=== PATIENT | female | born 1935 | race Caucasian/White ===

== ENCOUNTER 2017-10-08 13:20 | Inpatient (IN) | payer OTHER ==
[~2017-10-08] VITALS: Ht 154.9 cm; Wt 83.0 kg
[~2017-10-08 13:20] MED LIST: AMLODIPINE BESYL5 M1 PO; DIOVAN HCT 1601 EACH PO; GLUCOPHAGE1000 M1 PO; ZOCOR20 M1 PO
--- NOTE | 2017-10-08 13:24 | ED DYSPNEA/ASTHMA COMPLAINT ---
History of Present Illness General Chief Complaint: Dyspnea (COPD, CHF, Other) Stated Complaint: SOB Source: patient, old records Exam Limitations: no limitations Vital Signs & Intake/Output Vital Signs & Intake/Output Vital Signs Date Time Temp Pulse Resp B/P B/P Pulse O2 O2 Flow FiO2 Mean Ox Delivery Rate 10/08 1648 97.6 108 24 100/56 97 BIPAP 10/08 1615 120 98 10/08 1614 91 10/08 1613 88 Nasal 4.0L Cannula 10/08 1609 97.6 116 24 110/60 98 BIPAP 10/08 1553 132 32 124/74 90 Non 100% ReBreather 10/08 1437 97.1 100 20 118/70 95 Room Air 10/08 1345 92 Room Air 10/08 1345 92 10/08 1327 96.7 118 26 120/66 92 Room Air Allergies Coded Allergies: No Known Drug Allergies (Intermediate, NONE 10/08/17) conteh (LIP SWELLING FROM BEANS 07/02/16) Reconcile Medications Albuterol Sulfate (Proair Hfa) 90 MCG HFA.AER.AD 2 PUF INH Q4-6 PRN PRN SHORTNESS OF BREATH (Reported) Amlodipine Besylate 5 MG TABLET 1 TAB PO DAILY BP (Reported) Cyanocobalamin (Vitamin B-12) 1,000 MCG TABLET 1 TAB PO DAILY VITAMIN SUPPORT (Reported) Fluticasone/Salmeterol (Advair 250-50 Diskus) 250 MCG-50 MCG/DOSE BLST.W.DEV 1 PUF INH BID BREATHING PROBLEMS (Reported) Metformin HCl (Glucophage) 1,000 MG TABLET 1 TAB PO BID DIABETES (Reported) Simvastatin (Zocor*) 20 MG TABLET 1 TAB PO QPM CHOLESTEROL (Reported) Valsartan/Hydrochlorothiazide (Diovan Hct 160-12.5 MG Tab) 160 MG-12.5 MG TABLET 1 TAB PO DAILY BP (Reported) Triage Nurses Notes Reviewed? yes Onset: Gradual Duration: constant, getting worse Timing: recent history Severity: moderate Activities at Onset: none Prior Episodes/Possible Cause: no prior episodes Associated Symptoms: cough HPI: 82 Year old female with a past history known for asthma, diabetes, hypertension presents to the ER for evaluation sent in by her primary care physician complaining of shortness of breath wheezing for the past 3 weeks worse with lying flat and at nighttime. She also reports a nonproductive cough. No fever no chills no chest pain. She denies any abdominal pain nausea vomiting. She does not smoke. She has been using her inhaler without improvement. No leg swelling. no history of chf. she is not followed by a heart specialist or asphalt mixer (Devon Green) Past History Travel History Traveled to [place] past 21 day No Medical History Any Pertinent Medical History? see below for history Cardiovascular: hypertension Respiratory: asthma Endocrine: diabetes Surgical History Surgical History: non-contributory Psychosocial History Who do you live with Spouse What is your primary language Yakut Family History Hx Contributory? No (Devon Green) Review of Systems Review of Systems Constitutional: Reports: see HPI. Comments Review of systems: See HPI, All other systems negative. Constitutional, no chills no fever, HEENT: no sore throat no congestion Cardiovascular: No chest pain , Skin: no rashes, no change in skin Respiratory:see hpi GI: No nausea no vomiting, no diarrhea : No dysuria Muscle skeletal: No joint pain, no back pain, no neck pain, Neurologic: , no headache Heme/endocrine: No bruising Immunology: No lymphadenopathy ([place]on Green) Physical Exam Physical Exam General Appearance: well developed/nourished, no apparent distress, alert Respiratory: decreased breath sounds Comments: Well-developed well-nourished person in no acute distress HEENT: Normal EENT exam; PERRL, EOMI, HEAD is atraumatic. moist mucous membranes. Neck: Supple, normal range of motion Back: Full range of motion Cardiovascular: Regular rate and rhythms (+) murmur, no rub Respiratory: Chest nontender.There were no bony deformities, no asymmetry. No respiratory distress. Patient speaking in 3-4 word sentences decreased breath sounds bilaterally wheezes noted no rhonchi no rales Abdomen: Soft, nontender nondistended, no appreciable organomegaly. Normal bowel sounds. No rebound/guarding, , No ascites. Extremity: No edema, full range of motion of extremities Neuro: Alert oriented x3, motor sensory normal. There were no obvious focal neurologic abnormalities. Skin: No appreciable rash on exposed skin, skin is warm and dry. Psych: Mood and affect is normal, memory and judgment is normal. Core Measures ACS in differential dx? Yes CVA/TIA Diagnosis No Sepsis Present: No Sepsis Focused Exam Completed? No (Emile TOBIN,Devon) Progress Differential Diagnosis: asthma, AMI, CHF, COPD, pulmonary embolism, pneumonia, unstable angina Plan of Care: Orders Procedure Date/time Status Nothing by Mouth 10/09 B Active CBC WITHOUT DIFFERENTIAL 10/09 0600 Active BASIC ELECTROLYTES PLUS BUN&CR 10/09 0600 Active TROPONIN LEVEL 10/09 0000 Active EKG 10/09 0000 Active CHF Diet 10/08 D Complete TROPONIN LEVEL 10/08 1800 Active EKG 10/08 1800 Active ARTERIAL BLOOD GAS (GEN) 10/08 1700 Active PEAK FLOW MEASUREMENT (GEN) 10/08 1656 Active Pathway - chart 10/08 1639 Active House Staff 10/08 1639 Active CULTURE,URINE 10/08 1639 Active Code Status 10/08 1639 Active Patient Data 10/08 1630 Active LACTIC ACID 10/08 1622 Complete Patient Data 10/08 1604 Active ARTERIAL BLOOD GAS (GEN) 10/08 1547 Complete D-DIMER 10/08 1547 Active EKG 10/08 1547 Active CTA CHEST-PULMONARY EMBOLISM 10/08 1545 Active Patient Data 10/08 1446 Active FingerStick- Glucose 10/08 1444 Active OXYGEN SETUP (GEN) 10/08 1435 Active Saline Lock 10/08 1435 Active Admit to inpatient 10/08 1435 Active Vital Signs 10/08 1435 Active Activity/Ambulation 10/08 1435 Active Code Status 10/08 1435 Complete Intake & Output 10/08 1345 Active PHOSPHORUS 10/08 1334 Active Telemetry/Floor Tech 10/08 1331 Active TROPONIN LEVEL 10/08 1322 Active LACTIC ACID 10/08 1322 Active COMPREHENSIVE METABOLIC PANEL 10/08 1322 Active CBC WITHOUT DIFFERENTIAL 10/08 1322 Complete B-TYPE NATRIURETIC PEP (BNP) 10/08 1322 Active EKG 10/08 1321 Active TRC EVALUATION (GEN) 10/08 UNK Active BIPAP 10/08 UNK Active Saline Lock 10/08 UNK Active CHF Core Measures 10/08 UNK Active Lab Add-on Test 10/08 UNK Active Weight 10/08 UNK Active VTE Mechanical Prophylaxis 10/08 UNK Active Vital Signs 10/08 UNK Active Telemetry/Floor Tech 10/08 UNK Active Intake & Output 10/08 UNK Active FingerStick- Glucose 10/08 UNK Active Hui, Insertion/Removal/Asses 10/08 UNK Active Activity/Ambulation 10/08 UNK Active ECHOCARDIOGRAM 10/08 UNK Active Current Medications Sig/Haseeb Start time Last Medication Dose Stop Time Status Admin Furosemide 40 MG 7:30 AM, & 4:30 PM 10/09 0730 AC (Lasix) Heparin Sodium 5,000 UNIT Q8 10/08 2199 UNVr (Porcine) Methylprednisolone 40 MG Q8 10/08 2199 UNVr (Solumedrol) Insulin Aspart 0 TIDAC 10/08 1715 UNVr (NovoLOG) Laboratory Tests 10/08/17 1633: Lactic Acid 3.3 H, D-Dimer High Sensitivty Pending 10/08/17 1545: pH 7.15 *L, pCO2 51 H, pO2 80, HCO3 18 L, ABG O2 Sat (Measured) 89.0 L, Carboxyhemoglobin 0.7 L, O2 Concentration % 8 LPM, O2 Delivery Method NEB, Phlebotomy Draw Site RIGHT RADIAL 10/08/17 1334: Anion Gap 16, Estimated GFR > 60, BUN/Creatinine Ratio 23.3, Glucose 174 H, Lactic Acid 3.0 H, Calcium 9.7, Phosphorus Pending, Total Bilirubin 1.7 H, AST 33, ALT 31, Alkaline Phosphatase 52, Troponin I 0.03, [id number] Pept 00793 H, Total Protein 7.0, Albumin 4.0, Globulin 3.0, Albumin/Globulin Ratio 1.3, CBC w Diff NO MAN DIFF REQ, RBC 3.71 L, MCV 88.1, MCH 29.4, MCHC 33.4, RDW 15.4 H, MPV 9.1, Gran % 80.3 H, Lymphocytes % 14.6 L, Monocytes % 4.2, Eosinophils % 0.6, Basophils % 0.3, Absolute Granulocytes 6.6 H, Absolute Lymphocytes 1.2, Absolute Monocytes 0.3, Absolute Eosinophils 0, Absolute Basophils 0 Microbiology 10/08 1639 URINE ROUT: Urine Culture - COLB labs ordered, pt med with solumedrol, duoneb with sig improvement in breathing case d/w dr joy agrees with plan 1440- i d/w the pt at length her labs and xray findings and need for admission which she is in agreement with. call placed to cardiology Case discussed with Dr. Mejia who agrees with plan Diagnostic Imaging: Viewed by Me: Radiology Read. Discussed w/RAD: Radiology Read. Radiology Impression: PATIENT: RAJ GILLETTE PRESENT AGE: 82 PATIENT ACCOUNT NO: [id number] : 37 LOCATION: [facility] ORDERING PHYSICIAN: Devon TOBIN SERVICE DATE: 10/08/17 EXAM TYPE: RAD - XRY-PORTABLE CHEST XRAY EXAMINATION: XR PORTABLE CHEST CLINICAL INFORMATION: Dyspnea. Cough. Evaluate for pneumonia or CHF. COMPARISON: Chest radiograph 05/06/2012. TECHNIQUE: Portable frontal view of the chest was obtained. FINDINGS: The cardiac silhouette is enlarged and there is hilar vascular engorgement. Mild interstitial edema and small effusions. No overt airspace disease. Upper mediastinal contours are normal. No acute osseous finding. IMPRESSION: There is interstitial edema and small effusions consistent with congestive heart failure. Superimposed pneumonia cannot be definitively excluded but is felt to be less likely. DICTATED BY: Jamey Robison MD DATE/ TIME DICTATED:10/08/171416 CHILD PSYCHOMETRIST:TJ DATE/TIME TRANSCRIBED: 10/08/171416 CONFIDENTIAL, DO NOT COPY WITHOUT APPROPRIATE AUTHORIZATION. < Electronically signed in Other Vendor System> SIGNED BY: Jamey Robison MD 10/08/17 1422 Initial ED EKG: nonspecific ST T wave chg, stach at 100, normal axis Rhythm Strip: sinus tachycardia (Devon Green) Departure Departure Time of Disposition: 1441 Disposition: STILL A PATIENT Condition: Stable Clinical Impression Primary Impression: CHF exacerbation Secondary Impressions: Acute respiratory failure with hypoxia, Lactic acidosis Referrals: Abelino SEYMOUR,Olu Tobin (PCP/Family) Departure Forms: Customer Survey General Discharge Information Admission Note Spoke With: Jenny Oliveira MD Documentation of Exam: Documentation of any treatments & extenuating circumstances including Concerns Regarding Discharge (functional status, medication knowledge or non-compliance, living conditions, etc.) that warrant an admission rather than observation: [iv diuresis, cardiology consult, trend labs no history of chf, premature discharge noemi be medically harmful as she has failed outpatient therapy (Devon Green) PA/PEDIATRIC DERMATOLOGIST Co-Sign Statement Statement: ED Attending supervision documentation- x I saw and evaluated the patient. I have also reviewed all the pertinent lab results and diagnostic results. I agree with the findings and the plan of care as documented in the PA's/PEDIATRIC DERMATOLOGIST's documentation. Afib, chf, respiratory failure rquiring ICU management, BiPAP [] I have reviewed the ED Record and agree with the PA's/PEDIATRIC DERMATOLOGIST's documentation. [] Additions or exceptions (if any) to the PAs/PEDIATRIC DERMATOLOGIST's note and plan are summarized below: [] (Rodríguez SEYMOUR,Rohan) Critical Care Note Critical Care Note Critical Care Time: 30-74 min (Devon Green)
[2017-10-08 13:42] LABS: ABSOLUTE BASOPHIL COUNT 0 /CUMM (0.0-0.2); ABSOLUTE EOSINOPHIL COUNT 0 /CUMM (0.0-0.7); ABSOLUTE GRANULOCYTE CT 6.6 /CUMM (1.4-6.5); ABSOLUTE LYMPH COUNT 1.2 /CUMM (1.2-3.4); ABSOLUTE MONOCYTE COUNT 0.3 /CUMM (0.10-0.60); BASOPHIL % 0.3 % (0.0-2.0); EOSINOPHIL % 0.6 % (0-5); GRANULOCYTE % 80.3 % (42.2-75.2); HEMATOCRIT 32.7 % (37-47); MEAN CORPUSCULAR HGB 29.4 PG (27.0-31.0); MEAN CORPUSCULAR HGB CONC 33.4 G/DL (33.0-37.0); MEAN CORPUSCULAR VOLUME 88.1 FL (81.0-99.0); MEAN PLATELET VOLUME 9.1 FL (7.4-10.4); PLATELET COUNT 195 /CUMM (130-400); RBC DISTRIBUTION WIDTH 15.4 % (11.5-14.5); RED BLOOD CELL CT 3.71 /CUMM (4.20-5.40); WHITE BLOOD CELL COUNT 8.2 /CUMM (4.8-10.8)
[2017-10-08] MEDS ORDERED: ADVAIR 250-501 EACH INH (14:16)
[2017-10-08] MEDS ORDERED: PROAIR HFA8.5 GM INH (14:16)
[2017-10-08] MEDS ORDERED: VITAMIN B-121000 MC3 PO (14:16)
--- NOTE | 2017-10-08 14:22 | RADIOLOGY REPORT ---
EXAMINATION: XR PORTABLE CHEST CLINICAL INFORMATION: Dyspnea. Cough. Evaluate for pneumonia or CHF. COMPARISON: Chest radiograph 05/06/2012. TECHNIQUE: Portable frontal view of the chest was obtained. FINDINGS: The cardiac silhouette is enlarged and there is hilar vascular engorgement. Mild interstitial edema and small effusions. No overt airspace disease. Upper mediastinal contours are normal. No acute osseous finding. IMPRESSION: There is interstitial edema and small effusions consistent with congestive heart failure. Superimposed pneumonia cannot be definitively excluded but is felt to be less likely.
--- NOTE | 2017-10-08 15:09 | History & Physical ---
Susannah Jefferson 10/08/17 1685: General Information and HPI MD Statement: I have seen and personally examined RAJ GILLETTE and documented this H&P. The patient is a 82 year old F who presented with a patient stated chief complaint of [SOB/WHEEZING x 3 weeks]. Source of Information: patient, old records Exam Limitations: no limitations History of Present Illness: Mr. Gillette is a 82-year-old female with past medical history of asthma on adavir/Proair, type 2 diabetes on metformin, hypertension on Amlodipine/Diovan, Hx of GI bleed (2012), presented to ER for evaluation of shortness of breath/ wheezing for the past 1.5 month, worsening by lying flat, and at nighttime, and with some improvement by using her inhaler. Patient was walking in school with the principal and had onset of shortness of breath, and considered ER visit for further evaluation. Patient stated that she had dyspnea for 1.5mo during exertion after the cold weather started, eg. carrying things, walking up stairs. Patient also reported nonproductive cough when she tried to lay down, and would wake her up at middle of night, without significant gasping for air. She used 1- 2 pillows and could not lie flat. She could not identify any particular triggers of why her symptoms start. Patient endorsed murmur but was never seeing a agronomist. Patient had asthma since childhood, was dormant on symptoms for a long time and started again. The use of her inhalers was about the same for the past 1.5 months, despite her symtoms persist. Patient denied history of hospital admission of asthma. During our clinical interaction, patient's tachycardia persisted, and appeared to be anxious and endorsed history of anxiety. Patient's baseline was ambulating freely without a walker, and could walk up to 3 miles. Patient denied recent fever/night sweat/weight change/mood change/insomnia, dietary/appetite change. Patient denied Chest Pain/Palpitation/exercise intolerance/Abdominal pain, bowel movement/urinary abnormality, or other skin/musculoskeletal/neurological disorders. Allergies/Medications Allergies: Coded Allergies: No Known Drug Allergies (Intermediate, NONE 10/08/17) conteh (LIP SWELLING FROM BEANS 07/02/16) Home Med list Albuterol Sulfate (Proair Hfa) 90 MCG HFA.AER.AD 2 PUF INH Q4-6 PRN PRN SHORTNESS OF BREATH (Reported) Amlodipine Besylate 5 MG TABLET 1 TAB PO DAILY BP (Reported) Cyanocobalamin (Vitamin B-12) 1,000 MCG TABLET 1 TAB PO DAILY VITAMIN SUPPORT (Reported) Fluticasone/Salmeterol (Advair 250-50 Diskus) 250 MCG-50 MCG/DOSE BLST.W.DEV 1 PUF INH BID BREATHING PROBLEMS (Reported) Metformin HCl (Glucophage) 1,000 MG TABLET 1 TAB PO BID DIABETES (Reported) Simvastatin (Zocor*) 20 MG TABLET 1 TAB PO QPM CHOLESTEROL (Reported) Valsartan/Hydrochlorothiazide (Diovan Hct 160-12.5 MG Tab) 160 MG-12.5 MG TABLET 1 TAB PO DAILY BP (Reported) Past History Travel History Traveled to [place] past 21 day No Medical History Cardiovascular: hypertension Respiratory: asthma Endocrine: diabetes Surgical History Surgical History: non-contributory Past Family/Social History Psychosocial History Smoking Status: Never Smoked ETOH Use: denies use Illicit Drug Use: denies illicit drug use Functional Ability ADLs Independent: dressing, eating, toileting, bathing. Ambulation: independent IADLs Independent: shopping, housework, finances, food prep, telephone, transportation , medication admin. Review of Systems Review of Systems Constitutional: Reports: see HPI. Exam & Diagnostic Data Last 24 Hrs of Vital Signs/I&O Vital Signs Date Time Temp Pulse Resp B/P B/P Pulse O2 O2 Flow FiO2 Mean Ox Delivery Rate 10/08 1437 97.1 100 20 118/70 95 Room Air 10/08 1345 92 Room Air 10/08 1345 92 10/08 1327 96.7 118 26 120/66 92 Room Air Intake & Output 10/08 1600 10/08 0800 10/08 0000 Intake Total 0 Output Total Balance 0 Intake, Oral 0 Patient 84.368 kg Weight Weight Reported by Patient Measurement Method Physical Exam General Appearance Alert, Oriented X3, Cooperative, Moderate Distress Skin No Rashes, No Breakdown, No Significant Lesion Skin Temp/Moisture Exam: Warm/Dry Sepsis Skin Exam (color): Normal for Ethnicity HEENT Atraumatic, PERRLA, EOMI Neck Supple, No JVD Cardiovascular Regular Rate, Normal S1, Normal S2, Tachy Lungs Normal Air Movement, Bilateral decreased breath sounds, no obvious expiratory wheezing/crackles Abdomen Normal Bowel Sounds, Soft, No Tenderness Neurological Normal Speech, Strength at 5/5 X4 Ext, Anxious Extremities No Cyanosis, Normal Pulses, Trace/+1 BLE edema Last 24 Hrs of Labs/Mario: Laboratory Tests 10/08/17 1334: Anion Gap 16, Estimated GFR > 60, BUN/Creatinine Ratio 23.3, Glucose 174 H, Lactic Acid 3.0 H, Calcium 9.7, Total Bilirubin 1.7 H, AST 33, ALT 31, Alkaline Phosphatase 52, Troponin I 0.03, Rfz-F-Saqipissizt Pept 55241 H, Total Protein 7.0, Albumin 4.0, Globulin 3.0, Albumin/Globulin Ratio 1.3, CBC w Diff NO MAN DIFF REQ, RBC 3.71 L, MCV 88.1, MCH 29.4, MCHC 33.4, RDW 15.4 H, MPV 9.1, Gran % 80.3 H, Lymphocytes % 14.6 L, Monocytes % 4.2, Eosinophils % 0.6, Basophils % 0.3, Absolute Granulocytes 6.6 H, Absolute Lymphocytes 1.2, Absolute Monocytes 0.3, Absolute Eosinophils 0, Absolute Basophils 0 Diagnostic Data EKG Results Sinus tachycardia at about 100, no acute ST/T abnormalities CXR Results There is interstitial edema and small effusions consistent with congestive heart failure. Superimposed pneumonia cannot be definitively excluded but is felt to be less likely. Assessment/Plan Assessment: Mr. Gillette is a 82-year-old female with past medical history of asthma on adavir/Proair, type 2 diabetes on metformin, hypertension on Amlodipine/Diovan, Hx of GI bleed (2012), presented to ER for evaluation of shortness of breath/ wheezing for the past 1.5 month, worsening by lying flat, and at nighttime, and with some improvement by using her inhaler. Patient denied recent fever/night sweat/weight change/mood change/insomnia, dietary/appetite change. Patient denied Chest Pain/Palpitation/exercise intolerance/Abdominal pain, bowel movement/urinary abnormality, or other skin/musculoskeletal/neurological disorders. On admission, Vitals: Stable afebrile. 95% O2 sats 2L, however patient started desatting and was subsequently put on BiPAP, HR 100, RR 20, BP 118/70 -CBC: WBC 8.2, H/H 10.9/42.7, PLT 105, -BMP: Unremarkable, glucose 174, lactic acid 3.0, -Misc: ProBNP 62620 without previous labs, troponin 0 0.03, -AB.15/51/80/18/89% -CXR: Interstitial edema, small effusions consistent with congestive heart failure. -EKG: Sinus tachycardia without significant ST-T abnormalities. 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 Erosive gastroduodenitis. 2. Erosive esophagitis. 3. No varices nor evident portal hypertensive gastropathy. -Interventions in ER: IV Lasix 402, Solu-Medrol 125 IV 1, Atrovent/Proventil nebulizer, now on BiPAP Assessment: Mr. Gillette is a 82-year-old female with past medical history of asthma, diabetes, hypertension, presented to ER for evaluation of shortness of breath/ wheezing for the past 3 weeks, worsening by lying flat, and at nighttime, and with some improvement by using her inhaler. During our ER interaction, patient became increasingly dyspnea and elevated oxygen requirement, and eventually BiPAP was placed for the patient's respiratory support, with stat ABG showing respiratory acidosis at 7.15/51/81/89%. This patient past medical history of asthma, and he checks x-ray supportive of pleural effusion, patient's respiratory distress could be due to either/both asthma extubation and CHF extubation, however pulmonary embolus and should also be ruled out despite patient's onset of dyspnea has been going on for over the last 1.5 months. Patient's lactic acidosis is likely due to hypoxia rather than dehydration as patient endorsed adequate oral intake over the past few days. Problem list #CHF Exacerbation #r/o PE #Lactic acidosis #Hx of HTN, Asthma, HTN, DM Plan - Admit to Telemetry with continuous tele monitoring -Continued BiPAP and recheck ABG in an hour, TRC/nebulizer, NovoLog sliding scale/Accu-Chek -Pending pulm consult -Pending CTA to rule out PE DVT prophylaxis Heparin + ALPS Heart Healthy Diet Full Code As Ranked By This Provider Problem List: 1. CHF exacerbation Core Measures/Misc (04/04) Acute Coronary Syndrome ACS Diagnosis: No Congestive Heart Failure Congestive Heart Failure Diagnosis Yes Cerebrovascular Accident CVA/TIA Diagnosis: No VTE (View Protocol) VTE Risk Factors Age>40 No Mechanical VTE Prophylaxis d/t N/A MechProphylax Ordered No VTE Pharm Prophylaxis d/t NA PharmProphylax ordered Sepsis (View protocol) Sepsis Present: Nancy De La Rosa 10/08/17 1610: Resident Review Statement Resident Statement: examined this patient, discussed with rn internal medicine, agreed with rn internal medicine, reviewed EMR data (avail), discussed with nursing, reviewed images, amended to note Other Findings: Ms Kong is an 82-year-old woman with a past history of asthma, type 2 diabetes, hypertension came to the hospital with a chief concern of dyspnea for the last one and half month, and the symptoms that got worse in the last few days to a point that she was dyspnic even at rest on the am of presentation to the ER. Reported orthopnea for the last one month and nonproductive cough. She has been using increased use of rescue inhaler upto 3x per day, and every night for the last one month. Also reported pedal edema that she noticed in the last few weeks. No abdominal distention, dysuria, or changes in urination. No chest pain, palpitations, abdominal pain, nausea, vomiting. No recent or past concerns of chest pain or acute dyspnea. She was seen by her PCP recently, and added Advair to her medications. Reported compliance to her medications. No fever, dizziness, vision changes. She has no history of cardiac workup done. No family h/o cardiac diseases. Reported a very active lifestyle w/ walking upto 3 miles a day, and has been active up unitl a few days ago. No immobility, previous surgeries; no h/o cancers. No report of patt, brbpr, jaundice. At the time of admission-temperature 96.7, pulse rate 118 -->100, blood pressure 120/66, 92% on 3L oxygen. On examination: General Exam: AAOx3, moderate distress, Skin: No rashes, no breakdown; HEENT: PERRLA, EOMI;Neck: Supple, JVD + , No cervical lymphadenopathy; CVS: Reg Rate, Normal S1,S2, systolic murmur;Resp: decreased air entry, no wheezes, no crackles b/l ;Abdomen: Soft, No tenderness, Normal Bowel Sounds;Neuro: Normal Speech, Strength 5/5 b/l x 4 extremities, Sensation intact, CN III-XII NL, Reflexes 2+;Extremities: No cyanosis, 2+ pedal edema Pertinent laboratory findings: WBC 8.2, hemoglobin 10.9 (baseline), platelets 195, sodium 141, potassium 4.9, bicarbonate 18, lactic acid 3.0-->3.3, AST 33, ALT 31, alkaline phosphatase 52, troponin 0.03, proBNP 71016. BUN 21, Cr 0.9. ABG: PH 7.15, PCO2 51, PO2 80, oxygen saturation 89. EKG reveals normal sinus rhythm, Q waves in V2-V3-V4 indicating old septal infarcts, no ST-T wave changes. Heart rate 123, CO interval 112, normal axis. Chest x-ray reveals interstitial edema and small effusions consistent with congestive heart failure. Superimposed pneumonia cannot be definitively excluded but is felt to be less likely. Etiology in this case is likely acute heart failure which is a rapidly progressive failure state given an unclear precipitating event with likely left- sided heart failure. Other etiologies such as asthma/myocardial ischemia/ dysrhythmia/hypertension/pulmonary hypertension could be considered. Comparing to previous EKG, she may of had septal infarcts, contributing to her present clinical condition. In regards to her lactic acidosis, it does appear to be due to hypoxia without any clear source of infection at this time. Problem list: #1 acute hypoxic respiratory failure #2 acute heart failure #3 history of type 2 diabetes #4 history of hypertension #5 asthma exacerbation #6 lactic acidosis Plan: -admit the patient on telemetry -follow serial EKGs, troponins -daily Ins and Outs -daily weights -IV diuretics furosemide 40 mg twice a day. -Check BEP daily while on diuretics. -2D cardiac echo to assess ejection fraction, valvular pathology or regional wall motion abnormalities. -Elevate head of the bed to reduce venous return -NIPPV to reduce work of breathing, improve oxygenation -We will check ABG after an hour of BiPAP placement. -If she looks improved, she should be off BiPAP. -CHF diet, 2gm salt restriction -Security Installation Technician on dietary compliance -Follow lactic acid -Consider cxr after adequate diuresis. -Accuchecks, and Insulin sliding scale. -Continue losartan, and amlodipine, hold hydrochlorothiazide -Continue Solu-Medrol 40 mg every 8. -Cardiology consult-Yony Mejia MD has seen the patient in the ED. -If she has any fever, would consider sending cultures and flu swab. Hosekeeping: #1 DVT prophylaxis-subcutaneous heparin #2 GI prophylaxis-Protonix #3 CODE STATUS-full code. Néstor Gao MDyasminlyly 10/08/17 1632: Attending MD Review Statement Attending Statement Attending MD Statement: examined this patient, discuss w/resident/PA/SEAM SEWER, agreed w/resident/PA/SEAM SEWER, reviewed EMR data (avail), discussed with nursing, amended to note Attending Assessment/Plan: Patient is an 84-year-old female with history of cih-hutbosn-ooosxsamr diabetes mellitus, hypertension and gastrointestinal bleeding. She presented to the emergency room with complaints of progressive dyspnea on exertion,, paroxysmal nocturnal dyspnea and bilateral lower extremity swelling. Symptoms have been going on for the past month and a half. She denied any chest pain. She reports a nonproductive cough. She denies fever or chills. According to documentation by the emergency room physician assistant men's soccer coach when he evaluated the patient she was speaking in 3-4 word sentences and was saturating 92% on room air on arrival. She noted to the patient to be wheezing on his examination. Chest x-ray was done and showed evidence of pulmonary edema. She was given a dose of Lasix 40 mg intravenously a dose of Solu-Medrol bronchodilator therapy and referred to the medical service for further management. When patient was evaluated by the medical team, she was found in severe respiratory distress. She had apparently desaturated and was maintaining saturation of 92% on 8 L of oxygen. She was very agitated and using all accessory muscles. Patient was unable to answer questions due to her respiratory distress. On examination she had mild jugular venous distention. She had diminished breath sounds bilaterally particularly in the bases with some bibasilar crackles. Abdomen was obese soft and nontender. She had bilateral 1+ pedal edema. Current dose of Lasix 40 mg intravenously and obtain an ABG that showed severe respiratory acidosis of 7.15 with a PCO2 of 51 and oxygen of 80. It is noted that patient had a high lactic acid level of 3. Her EKG showed sinus tachycardia with no obvious ischemic changes. First set of troponin was 0.03. She was then placed on BiPAP therapy. About 45 minutes after administration of Lasix and BiPAP therapy medically. She was now very calm. She was able to speak in complete sentences. She continues to deny any chest pain. Problems: 1. Acute hypoxic and hypercapnic respiratory failure. 2. Acute Congestive Heart Fiure. 3. Non-Insulin Dependent Diabetis. 4. Chronic Anemia Plan: -Admit to the inpatient service for further management. -If patient remains clinically stable, she may be managed of the telemetry service. -Continue bronchodilator therapy. Systemic steroid therapy with Soumedrol 40mg IV q 8h -Elsa nue BiPAP threapy. Repeat ABG now. -Now obvious evidence of an infectious processs. Hold off abx for now. -Diuresis with lasix 40mg IV q12h -Daily weight, I/O, Echocardiogram, trend cardiac enzymes. -Cardiology and Pulmonogy consultation. -High dose sliding scale coverage -Follow up D-Dimer. CTA has been ordered by the ER service to r/o PE qand further evaluate Pulmonmary process which at present appearsto be secondary to CHF with some component of bronchospasm. -Chemical DVT prophyaxis.
--- NOTE | 2017-10-08 16:23 | Admission Certification ---
Admission Certification Certification Statement - As attending physician, I certify that at the time of - admission, based on clinical presentation, severity of - symptoms, need for further diagnostic testing and - therapeutic interventions, and risk of adverse outcomes - without in-hospital treatment, in my clinical assessment, - this patient requires an acute hospital stay for a minimum - of two nights or longer. I have also considered psychsocial - factors such as support system, advanced age, financial - issues, cognitive issues, and failed out-patient treatments, - past re-admission history, safety of patient, and lack of - compliance as applicable. Specific rationale supporting this admission is: Patient will require hospitalization for management of her acute hypoxic respiratory failure.
--- NOTE | 2017-10-08 17:26 | Cons- Cardiology ---
General Information and HPI Consulting Request Date of Consult: 10/08/17 Requested By: Murray SEYMOUR,Tanner Reason for Consult: Worsening dyspnea; abnormal ECG; CHF Source of Information: patient Exam Limitations: no limitations History of Present Illness: The patient is an 82 year old female who is followed by Dr. Roca as her primary MD. She presents to the ER with symptoms of worsening dyspnea over the last month or so. Her past history is significant for asthma, DM2, HTN and a prior history of GI bleeding. According to the patient, she has noted increasing exertional and non exertional dyspnea over the last several weeks. She saw Dr. Roca recently and he put her on increased inhalers for supposed asthma. She denies any other cardiac symptoms and denies any significant LE edema. SHe does note that she has always had a heart murmur which was never completely evaluated. During our interaction in the ER, the patient claims to be feeling better and is sating in the low 90s on room air but is visibly dyspneic with conservation and tachycardic at rest. Allergies/Medications Allergies: Coded Allergies: No Known Drug Allergies (Intermediate, NONE 10/08/17) conteh (LIP SWELLING FROM BEANS 07/02/16) Home Med List: Albuterol Sulfate (Proair Hfa) 90 MCG HFA.AER.AD 2 PUF INH Q4-6 PRN PRN SHORTNESS OF BREATH (Reported) Amlodipine Besylate 5 MG TABLET 1 TAB PO DAILY BP (Reported) Cyanocobalamin (Vitamin B-12) 1,000 MCG TABLET 1 TAB PO DAILY VITAMIN SUPPORT (Reported) Fluticasone/Salmeterol (Advair 250-50 Diskus) 250 MCG-50 MCG/DOSE BLST.W.DEV 1 PUF INH BID BREATHING PROBLEMS (Reported) Metformin HCl (Glucophage) 1,000 MG TABLET 1 TAB PO BID DIABETES (Reported) Simvastatin (Zocor*) 20 MG TABLET 1 TAB PO QPM CHOLESTEROL (Reported) Valsartan/Hydrochlorothiazide (Diovan Hct 160-12.5 MG Tab) 160 MG-12.5 MG TABLET 1 TAB PO DAILY BP (Reported) Current Medications: Current Medications Sig/Haseeb Start time Last Medication Dose Route Stop Time Status Admin Albuterol Sulfate 2 PUF Q4-6 PRN PRN 10/08 1715 UNVr INH Albuterol Sulfate 3 ML ONCE ONE 10/08 1630 DC 10/08 INH 10/08 1631 1619 Albuterol Sulfate 3 ML ONCE ONE 10/08 1630 DC 10/08 INH 10/08 1631 1619 Albuterol Sulfate 3 ML ONCE ONE 10/08 1330 DC 10/08 INH 10/08 1331 1343 Amlodipine Besylate 5 MG DAILY 10/09 1000 UNVr PO Atorvastatin Calcium 20 MG 1700 10/09 1700 UNVr PO Budesonide/ 2 PUF BID 10/09 1000 UNVr Formoterol Fumarate INH Furosemide 40 MG 7:30 AM, & 4:30 PM 10/09 0730 AC IV Furosemide 40 MG ONCE ONE 10/08 1600 DC 10/08 IV 10/08 1601 1555 Furosemide 0 .STK-MED ONE 10/08 1555 DC IV Furosemide 0 .STK-MED ONE 10/08 1452 DC IV Furosemide 40 MG ONCE ONE 10/08 1445 DC 10/08 IV 10/08 1446 1454 Heparin Sodium 5,000 UNIT Q8 10/08 2200 UNVr (Porcine) SC Insulin Aspart 0 TIDAC 10/08 1715 UNVr SC Ipratropium [place] 2.5 ML ONCE ONE 10/08 1330 DC 10/08 INH 10/08 1331 1343 Losartan Potassium 50 MG DAILY 10/09 1000 UNVr PO Methylprednisolone 40 MG Q8 10/08 2200 UNVr IV Methylprednisolone 125 MG ONCE ONE 10/08 1345 DC 10/08 IV 10/08 1346 1341 Methylprednisolone 0 .STK-MED ONE 10/08 1342 DC .ROUTE Past History Travel History Traveled to [place] past 21 day No Medical History Cardiovascular: hypertension Respiratory: asthma Endocrine: diabetes Surgical History Surgical History: non-contributory Psychosocial History Smoking Status: Never Smoked ETOH Use: denies use Illicit Drug Use: denies illicit drug use Functional Ability ADLs Independent: dressing, eating, toileting, bathing. Ambulation: independent IADLs Independent: shopping, housework, finances, food prep, telephone, transportation , medication admin. Exam & Diagnostic Data Vital Signs and I&O Vital Signs Date Time Temp Pulse Resp B/P B/P Pulse O2 O2 Flow FiO2 Mean Ox Delivery Rate 10/08 1648 97.6 108 24 100/56 97 BIPAP 10/08 161 120 98 10/08 1614 91 10/08 1613 88 Nasal 4.0L Cannula 10/08 1609 97.6 116 24 110/60 98 BIPAP 10/08 1553 132 32 124/74 90 Non 100% ReBreather 10/08 1437 97.1 100 20 118/70 95 Room Air 10/08 1345 92 Room Air 10/08 1345 92 10/08 1327 96.7 118 26 120/66 92 Room Air Intake & Output 10/08 1600 10/08 0800 10/08 0000 10/07 1600 10/07 0800 10/07 0000 Intake Total 0 Output Total Balance 0 Intake, Oral 0 Patient 186 lb Weight Weight Reported by Patient Measurement Method Physical Exam: General Appearance Alert, Oriented X3, Cooperative, Mild to Moderate Distress Skin Normal HEENT Atraumatic, PERRLA, EOMI Neck Supple, JVP elevated to 2 cm at 45 degrees, Caroitd 1-2 +bilaterally Cardiovascular Regular tachycardia, S1, S2, 2/6 systolic murmur over the precordium, ? soft diastolic murmur Lungs Bilateral rhonchi and rales. Abdomen Normal Bowel Sounds, Soft, No Tenderness Neurological Normal / nonfocal Extremities No Cyanosis, Normal Pulses, Trace/+1 LE edema right side; 1-2+ edema left side. Labs/Mario Results: Laboratory Tests 10/08 10/08 10/08 1720 1633 1545 Blood Gas pH (7.35 - 7.45 PH) 7.38 7.15 *L pCO2 (35 - 45 TORR) 26 L 51 H pO2 (80 - 100 TORR) 109 H 80 HCO3 (21 - 28 MEQ/L) 16 L 18 L ABG O2 Sat (Measured) (>96.0 %) 97.0 89.0 L P-50 (Temp Corrected) Y Carboxyhemoglobin (1.5 - 5.0 %) 1 L 0.7 L O2 Concentration % 40% 8 LPM Temperature (97.0 - 100.0 FARH) 97.9 Respiration Rate (BPM) 24 O2 Delivery Method BIPAP NEB Vent Mode ST Expiratory Pressure (CM H2O P) 4 Inspiratory Pressure (CM H2O P) 18 Chemistry Lactic Acid (0.7 - 2.1 mmol/L) 3.3 H Coagulation D-Dimer High Sensitivty (0 - 243 ng/ml) 355 H Miscellaneous Phlebotomy Draw Site RIGHT RADIAL RIGHT RADIAL 10/08 1334 Chemistry Sodium (137 - 145 mmol/L) 141 Potassium (3.5 - 5.1 mmol/L) 4.9 Chloride (98 - 107 mmol/L) 107 Carbon Dioxide (22 - 30 mmol/L) 18 L Anion Gap (5 - 16) 16 BUN (7 - 17 mg/dL) 21 H Creatinine (0.5 - 1.0 mg/dL) 0.9 Estimated GFR (>60 ml/min) > 60 BUN/Creatinine Ratio (7 - 25 %) 23.3 Glucose (65 - 99 mg/dL) 174 H Lactic Acid (0.7 - 2.1 mmol/L) 3.0 H Calcium (8.4 - 10.2 mg/dL) 9.7 Phosphorus (2.5 - 4.5 mg/dL) Pending Total Bilirubin (0.2 - 1.3 mg/dL) 1.7 H AST (14 - 36 U/L) 33 ALT (9 - 52 U/L) 31 Alkaline Phosphatase (<127 U/L) 52 Troponin I (< 0.11 ng/ml) 0.03 [id number]-K-Qjjmabclhes Pept (<125 pg/mL) 30625 H Total Protein (6.3 - 8.2 g/dL) 7.0 Albumin (3.5 - 5.0 g/dL) 4.0 Globulin (1.9 - 4.2 gm/dL) 3.0 Albumin/Globulin Ratio (1.1 - 2.2 %) 1.3 Hematology CBC w Diff NO MAN DIFF REQ WBC (4.8 - 10.8 /CUMM) 8.2 RBC (4.20 - 5.40 /CUMM) 3.71 L Hgb (12.0 - 16.0 G/DL) 10.9 L Hct (37 - 47 %) 32.7 L MCV (81.0 - 99.0 FL) 88.1 MCH (27.0 - 31.0 PG) 29.4 MCHC (33.0 - 37.0 G/DL) 33.4 RDW (11.5 - 14.5 %) 15.4 H Plt Count (130 - 400 /CUMM) 195 MPV (7.4 - 10.4 FL) 9.1 Gran % (42.2 - 75.2 %) 80.3 H Lymphocytes % (20.5 - 51.1 %) 14.6 L Monocytes % (1.7 - 9.3 %) 4.2 Eosinophils % (0 - 5 %) 0.6 Basophils % (0.0 - 2.0 %) 0.3 Absolute Granulocytes (1.4 - 6.5 /CUMM) 6.6 H Absolute Lymphocytes (1.2 - 3.4 /CUMM) 1.2 Absolute Monocytes (0.10 - 0.60 /CUMM) 0.3 Absolute Eosinophils (0.0 - 0.7 /CUMM) 0 Absolute Basophils (0.0 - 0.2 /CUMM) 0 Diagnostic Data EKG Results ST with non specific STT changes; PRWP; ? OASMI. CXR Results FINDINGS: The cardiac silhouette is enlarged and there is hilar vascular engorgement. Mild interstitial edema and small effusions. No overt airspace disease. Upper mediastinal contours are normal. No acute osseous finding. IMPRESSION: There is interstitial edema and small effusions consistent with congestive heart failure. Superimposed pneumonia cannot be definitively excluded but is felt to be less likely. Assessment/Plan Assessment/Plan Assessment: 1. Worsening dyspnea with evidence of CHF on examination and CXR; elevated proBNP; acute hypercapneic respiratory failure - The patient's physical examination and CXR are consistent with CHF; etiology unclear; ? valvular disease; ? cardiomyopathy; ? ischemic disease. 2. LE edema possible related to #1 3. Murmur - Difficult to assess secondary to resting tachycardia; Aortic / mitral valve disease vs CM / LVOT obstuction 4. Abnormal ECG 5. ELevated lactic acid level 5. Normalcytic anemia 6. History of HTN 7. History of DM2 8. History of asthma Recommendations: - Admit to telemetry floor - Serial troponins and ECGs - Diuresis with low dose IV lasix 20-40 mg BID with close monitoring of I/Os and daily weights. - FOllowup labs in the AM - Echocardiogram to assess ventricular and valvular function; RVSP - COntinue to monitor respiratory status. - COnitnue BIPAP pending followup ABG - COntinue regular meds; hold HCTZ - Pulmonary consult - CTA chest pending Consult Acknowledgment - Thank you for your consult request.
--- NOTE | 2017-10-08 19:55 | CT SCAN REPORT ---
EXAMINATION: CT ANGIOGRAM OF THE CHEST WITH AND WITHOUT CONTRAST (CT PULMONARY ANGIOGRAM FOR PE) CLINICAL INFORMATION: Reason for Study:
Presumptive Dx: RO PE
Signs Symptoms: DYSPNEA
COMPARISON: None TECHNIQUE: Prior to contrast administration, noncontrast localization images were obtained. Subsequently, multidetector volumetric imaging was performed from the thoracic inlet to below the diaphragms following the administration of 80 mL Omnipaque 350 intravenous contrast. No contrast reaction reported. Sagittal, coronal, and MIP oblique sagittal reformatted images were obtained on the CT workstation, uploaded to PACS, and reviewed. There is no filling defect to suggest a pulmonary embolism. Imaging lung cantrell. Centrally some mildly prominent adenopathy. Some mild hilar adenopathy. Imaging lung cantrell. Right lung; Bronchial wall thickening. Right basilar atelectasis/infiltrate. Small to moderate right-sided effusion. Left lung; Some small patchy areas of infiltrate in the lingula and left upper lung. Small left effusion. Left basilar atelectasis or infiltrate. Corrugated liver. Findings suggest cirrhosis. IMPRESSION: No filling defect to suggest a pulmonary embolism. Moderate effusion on right and small on left with adjacent basilar atelectasis or infiltrate. Patchy areas of infiltrate in the left upper lung. Mildly prominent central adenopathy may be reactive. Continued follow-up recommended. Findings suggest cirrhosis in the liver
[2017-10-08 20:32] VITALS: BP 108/74
[2017-10-08 22:26] VITALS: BP 110/70
[2017-10-09 07:15] VITALS: BP 102/64
--- NOTE | 2017-10-09 08:50 | PN- Housestaff ---
Subjective Follow-up For: ADHF Complaints: no complaints Tele-Events Since Last Visit: Normal sinus rhythm, sinus tachycardia, 101-106. Subjective: Ms. Prather feels much better this a.m. She did not require BiPAP overnight. Breathing improved, but feels short of breath upon getting to the edge of the bed. She did not have any chest pain, palpitations. She was currently on intravenous furosemide, diuresing well. Fluid balance negative so far. Review of Systems Constitutional: Reports: see HPI. Objective Last 24 Hrs of Vital Signs/I&O Vital Signs Date Time Temp Pulse Resp B/P B/P Pulse O2 O2 Flow FiO2 Mean Ox Delivery Rate 10/09 0715 98.0 111 24 102/64 93 Nasal Cannula 10/08 2225 97.3 112 26 110/70 94 10/09 2223 Nasal 4.0L Cannula 10/08 2148 Nasal 4.0L Cannula 10/09 2031 97.4 118 38 108/74 94 10/08 1927 97.9 114 24 100/62 95 Nasal 4.0L Cannula 10/08 1835 97.9 112 24 96/54 95 Nasal 4.0L Cannula 10/08 1808 98.0 118 24 98/54 98 BIPAP 10/08 1648 97.6 108 24 100/56 97 BIPAP 10/08 1615 120 98 10/08 1614 91 10/08 1613 88 Nasal 4.0L Cannula 10/08 1609 97.6 116 24 110/60 98 BIPAP 10/08 1553 132 32 124/74 90 Non 100% ReBreather 10/08 1437 97.1 100 20 118/70 95 Room Air 10/08 1345 92 Room Air 10/08 1345 92 10/08 1327 96.7 118 26 120/66 92 Room Air Intake & Output 10/09 1600 10/09 0800 10/09 0000 Intake Total 360 Output Total 1300 950 Balance -940 -950 Intake, Oral 360 Number 1 Bowel Movements Output, Urine 1300 950 Patient 176 lb Weight Weight Reported by Patient Measurement Method Physical Exam General Appearance: Mild Distress Other Physical Findings: General Exam: AAOx3, mild distress, Skin: No rashes, no breakdown; HEENT: PERRLA , EOMI;Neck: Supple, JVD + , No cervical lymphadenopathy; CVS: Reg Rate, Normal S1,S2, systolic murmur;Resp: decreased air entry, no wheezes, no crackles b/l ; Abdomen: Soft, No tenderness, Normal Bowel Sounds;Neuro: Normal Speech, Strength 5/5 b/l x 4 extremities, Sensation intact, CN III-XII NL, Reflexes 2+; Extremities: No cyanosis, 2+ pedal edema Current Medications: Current Medications Sig/Haseeb Start time Last Medication Dose Route Stop Time Status Admin Albuterol Sulfate 3 ML TID 10/09 1000 AC INH Albuterol Sulfate 2 PUF Q4-6 PRN PRN 10/08 1715 AC INH Albuterol Sulfate 3 ML ONCE ONE 10/08 1630 DC 10/08 INH 10/08 1631 1619 Albuterol Sulfate 3 ML ONCE ONE 10/08 1630 DC 10/08 INH 10/08 1631 1619 Albuterol Sulfate 3 ML ONCE ONE 10/08 1330 DC 10/08 INH 10/08 1331 1343 Amlodipine Besylate 5 MG DAILY 10/09 1000 CAN PO Atorvastatin Calcium 20 MG 1700 10/09 1700 AC PO Budesonide/ 2 PUF BID 10/09 1000 AC Formoterol Fumarate INH Furosemide 40 MG 7:30 AM, & 4:30 PM 10/09 0730 AC 10/09 IV 0755 Furosemide 40 MG ONCE ONE 10/08 1600 DC 10/08 IV 10/08 1601 1555 Furosemide 0 .STK-MED ONE 10/08 1555 DC IV Furosemide 0 .STK-MED ONE 10/08 1452 DC IV Furosemide 40 MG ONCE ONE 10/08 1445 DC 10/08 IV 10/08 1446 1454 Heparin Sodium 5,000 UNIT Q8 10/08 2200 AC 10/09 (Porcine) SC 0627 Insulin Aspart 0 TIDAC 10/08 1715 AC 10/09 SC 0802 Ipratropium Gladys 2.5 ML ONCE ONE 10/08 1330 DC 10/08 INH 10/08 1331 1343 Losartan Potassium 50 MG DAILY 10/09 1000 CAN PO Losartan Potassium 50 MG DAILY 10/09 1000 AC PO Methylprednisolone 40 MG Q8 10/08 2200 AC 10/09 IV 0627 Methylprednisolone 125 MG ONCE ONE 10/08 1345 DC 10/08 IV 10/08 1346 1341 Methylprednisolone 0 .STK-MED ONE 10/08 1342 DC .ROUTE Last 24 Hrs of Lab/Mario Results Last 24 Hrs of Labs/Mics: Laboratory Tests 10/09/17 0610: Anion Gap 14, Estimated GFR 48 L, BUN/Creatinine Ratio 24.5, CBC w Diff Pending , WBC Pending, RBC Pending, Hgb Pending, Hct Pending, MCV Pending, MCH Pending, MCHC Pending, RDW Pending, Plt Count Pending, MPV Pending 10/09/17 0015: Troponin I 0.05 10/08/17 2245: Lactic Acid 2.6 H 10/08/17 1852: Troponin I 0.04 10/08/17 1852: Lactic Acid 4.3 H 10/08/17 1720: pH 7.38, pCO2 26 L, pO2 109 H, HCO3 16 L, ABG O2 Sat (Measured) 97.0, P-50 ( Temp Corrected) Y, Carboxyhemoglobin 1 L, O2 Concentration % 40%, Temperature 97.9, Respiration Rate 24, O2 Delivery Method BIPAP, Vent Mode ST, Expiratory Pressure 4, Inspiratory Pressure 18, Phlebotomy Draw Site RIGHT RADIAL 10/08/17 1633: Lactic Acid 3.3 H, D-Dimer High Sensitivty 355 H 10/08/17 1545: pH 7.15 *L, pCO2 51 H, pO2 80, HCO3 18 L, ABG O2 Sat (Measured) 89.0 L, Carboxyhemoglobin 0.7 L, O2 Concentration % 8 LPM, O2 Delivery Method NEB, Phlebotomy Draw Site RIGHT RADIAL 10/08/17 1334: Anion Gap 16, Estimated GFR > 60, BUN/Creatinine Ratio 23.3, Glucose 174 H, Serum Osmolality 296 H, Lactic Acid 3.0 H, Calcium 9.7, Phosphorus 4.2, Total Bilirubin 1.7 H, AST 33, ALT 31, Alkaline Phosphatase 52, Troponin I 0.03, Pro- B-Natriuretic Pept 59031 H, Total Protein 7.0, Albumin 4.0, Globulin 3.0, Albumin/Globulin Ratio 1.3, TSH &T3 &Free T4 Intrp 0.891, CBC w Diff NO MAN DIFF REQ, RBC 3.71 L, MCV 88.1, MCH 29.4, MCHC 33.4, RDW 15.4 H, MPV 9.1, Gran % 80.3 H, Lymphocytes % 14.6 L, Monocytes % 4.2, Eosinophils % 0.6, Basophils % 0.3, Absolute Granulocytes 6.6 H, Absolute Lymphocytes 1.2, Absolute Monocytes 0.3, Absolute Eosinophils 0, Absolute Basophils 0 Microbiology 10/089 URINE ROUT: Urine Culture - COLB Assessment/Plan Assessment: Ms Kong is an 82-year-old woman with a past history of asthma, type 2 diabetes, hypertension came to the hospital with a chief concern of dyspnea for the last one and half month, and the symptoms that got worse in the last few days to a point that she was dyspnic even at rest on the am of presentation to the ER likely secondary to ADHF. At the time of admission-temperature 96.7, pulse rate 118 -->100, blood pressure 120/66, 92% on 3L oxygen. She remained on BiPAP overnight and was comfortable. Oxygen saturations remained above 95%. Pertinent laboratory findings: WBC 8.2, hemoglobin 10.9 (baseline), platelets 195, potassium 4.9,-->5.1 bicarbonate 18-->21, lactic acid 3.0-->3.3-->2.6 troponin 0.03, 0.04, 0.05 proBNP 21130. BUN 21, Cr 0.9-->1.1. 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 Heart rate 123, [place] interval 112, normal axis. Follow-up echocardiograms did not reveal any new ST-T wave changes. Chest x-ray reveals interstitial edema and small effusions consistent with congestive heart failure. Superimposed pneumonia cannot be definitively excluded but is felt to be less likely. Etiology in this case is likely acute heart failure which is a rapidly progressive failure state given an unclear precipitating event with likely left- sided heart failure. Other etiologies such as asthma/myocardial ischemia/ dysrhythmia/hypertension/pulmonary hypertension could be considered. Comparing to previous EKG, she may of had septal infarcts, contributing to her present clinical condition. In regards to her lactic acidosis, it does appear to be due to hypoxia without any clear source of infection at this time. Problem list: #1 acute hypoxic respiratory failure #2 acute heart failure #3 history of type 2 diabetes #4 history of hypertension #5 asthma exacerbation #6 lactic acidosis Plan: -admit the patient on telemetry -daily Ins and Outs, Negative -940 ml. -daily weights -IV diuretics furosemide 40 mg twice a day, which could be changed to once daily. -Check BEP daily while on diuretics. -Follow up 2D cardiac echo to assess ejection fraction, valvular pathology or regional wall motion abnormalities. -Elevate head of the bed to reduce venous return -NIPPV to reduce work of breathing, improve oxygenation -We will check ABG after an hour of BiPAP placement. -If she looks improved, she should be off BiPAP. -CHF diet, 2gm salt restriction -Telephone Service Representative on dietary compliance -Follow lactic acid -Consider cxr after adequate diuresis. -Accuchecks, and Insulin sliding scale. - Hold losartan for now since she has elevated Sr Cr; , and start amlodipine, hold hydrochlorothiazide -Continue Solu-Medrol 40 mg every 8. -Cardiology consult-Yony Mejia MD has seen the patient in the ED. -If she has any fever, would consider sending cultures and flu swab. Hosekeeping: #1 DVT prophylaxis-subcutaneous heparin #2 GI prophylaxis-Protonix #3 CODE STATUS-full code. Problem List: 1. Acute respiratory failure with hypoxia 2. Lactic acidosis 3. CHF exacerbation Pain Ratin Pain Location: back Pain Goal: Pain 4 or less Pain Plan: tylenol prn Tomorrow's Labs & Rationales: cbc- h/o of GI bleed. bep- while she is on lasix
[2017-10-09 08:54] LABS: ABSOLUTE BASOPHIL COUNT 0 /CUMM (0.0-0.2); ABSOLUTE EOSINOPHIL COUNT 0 /CUMM (0.0-0.7); ABSOLUTE GRANULOCYTE CT 5.4 /CUMM (1.4-6.5); ABSOLUTE LYMPH COUNT 0.5 /CUMM (1.2-3.4); ABSOLUTE MONOCYTE COUNT 0 /CUMM (0.10-0.60); BASOPHIL % 0.2 % (0.0-2.0); EOSINOPHIL % 0 % (0-5); HEMATOCRIT 31.5 % (37-47); MEAN CORPUSCULAR HGB 29.7 PG (27.0-31.0); MEAN CORPUSCULAR HGB CONC 33.3 G/DL (33.0-37.0); MEAN CORPUSCULAR VOLUME 89.1 FL (81.0-99.0); PLATELET COUNT 150 /CUMM (130-400); RED BLOOD CELL CT 3.53 /CUMM (4.20-5.40)
--- NOTE | 2017-10-09 11:36 | PN- Cardiology ---
Subjective Subjective: Patient is feeling much better this morning no dyspnea at rest does not feel any chest pains or palpitations has had good urinary output. Oxygen needs have decreased to 4 L by nasal cannula, and heart rate has decreased to about 105 at rest. Objective Vital Signs and I&Os Vital Signs Date Time Temp Pulse Resp B/P B/P Pulse O2 O2 Flow FiO2 Mean Ox Delivery Rate 10/09 0946 93 Nasal 4.0L Cannula 10/09 0800 Nasal 4.0L Cannula 10/09 0715 98.0 111 24 102/64 93 Nasal Cannula 10/08 2226 97.3 112 26 110/70 94 10/08 222 Nasal 4.0L Cannula 10/089 Nasal 4.0L Cannula 10/09 2031 97.4 118 38 108/74 94 10/08 1927 97.9 114 24 100/62 95 Nasal 4.0L Cannula 10/08 1835 97.9 112 24 96/54 95 Nasal 4.0L Cannula 10/08 1808 98.0 118 24 98/54 98 BIPAP 10/08 1648 97.6 108 24 100/56 97 BIPAP 10/08 1615 120 98 10/08 1614 91 10/08 1613 88 Nasal 4.0L Cannula 10/08 1609 97.6 116 24 110/60 98 BIPAP 10/08 1553 132 32 124/74 90 Non 100% ReBreather 10/08 1437 97.1 100 20 118/70 95 Room Air 10/08 1345 92 Room Air 10/08 1345 92 10/08 1327 96.7 118 26 120/66 92 Room Air Intake & Output 10/09 1600 10/09 0800 10/09 0000 10/08 1600 10/08 0800 10/08 0000 Intake Total 360 0 Output Total 1300 950 Balance -940 -950 0 Intake, Oral 360 0 Number 1 Bowel Movements Output, Urine 1300 950 Patient 176 lb 186 lb Weight Weight Reported by Patient Reported by Patient Measurement Method Physical Exam: Patient is alert oriented 3 comfortable in no distress change lines HEENT exam is grossly normal Jugular venous pressure is estimated at 12 cm of H2O Good air entry bilaterally and the lungs, no wheezing, a few rales at the base of the lungs. S1 and S2 are present and of normal intensity, 2/6 systolic ejection murmur in the left sternal border with good carotid upstroke. Abdomen is soft nondistended normal bowel sounds There is good capillary refill in the lower extremities Absence of edema in the lower extremities, absence of presacral edema. Current Medications: Current Medications Sig/Haseeb Start time Last Medication Dose Route Stop Time Status Admin Albuterol Sulfate 3 ML TID 10/09 1000 AC 10/09 INH 0941 Albuterol Sulfate 2 PUF Q4-6 PRN PRN 10/08 1715 AC INH Albuterol Sulfate 3 ML ONCE ONE 10/08 1630 DC 10/08 INH 10/08 1631 1619 Albuterol Sulfate 3 ML ONCE ONE 10/08 1630 DC 10/08 INH 10/08 1631 1619 Albuterol Sulfate 3 ML ONCE ONE 10/08 1330 DC 10/08 INH 10/08 1331 1343 Amlodipine Besylate 5 MG 1700 10/09 1700 AC PO Amlodipine Besylate 5 MG DAILY 10/09 1000 CAN PO Atorvastatin Calcium 20 MG 1700 10/09 1700 AC PO Budesonide/ 2 PUF BID 10/09 1000 AC 10/09 Formoterol Fumarate INH 0849 Furosemide 40 MG 7:30 AM, & 4:30 PM 10/09 0730 AC 10/09 IV 0755 Furosemide 40 MG ONCE ONE 10/08 1600 DC 10/08 IV 10/08 1601 1555 Furosemide 0 .STK-MED ONE 10/08 1555 DC IV Furosemide 0 .STK-MED ONE 10/08 1452 DC IV Furosemide 40 MG ONCE ONE 10/08 1445 DC 10/08 IV 10/08 1446 1454 Heparin Sodium 5,000 UNIT Q8 10/08 2200 AC 10/09 (Porcine) SC 0627 Insulin Aspart 0 TIDAC 10/08 1715 AC 10/09 SC 0802 Ipratropium [place] 2.5 ML ONCE ONE 10/08 1330 DC 10/08 INH 10/08 1331 1343 Losartan Potassium 50 MG DAILY 10/09 1000 CAN PO Losartan Potassium 50 MG DAILY 10/09 1000 CAN PO Methylprednisolone 40 MG Q8 10/08 2200 AC 10/09 IV 0627 Methylprednisolone 125 MG ONCE ONE 10/08 1345 DC 10/08 IV 10/08 1346 1341 Methylprednisolone 0 .STK-MED ONE 10/08 1342 DC .ROUTE Results Last 48 Hrs of Labs/Mics: Laboratory Tests 10/09/17 0610: Anion Gap 14, Estimated GFR 48 L, BUN/Creatinine Ratio 24.5, CBC w Diff NO MAN DIFF REQ, RBC 3.53 L, MCV 89.1, MCH 29.7, MCHC 33.3, RDW 16.0 H, MPV 10.0, Gran % 90.0 H, Lymphocytes % 9.1 L, Monocytes % 0.7 L, Eosinophils % 0, Basophils % 0.2, Absolute Granulocytes 5.4, Absolute Lymphocytes 0.5 L, Absolute Monocytes 0 L, Absolute Eosinophils 0, Absolute Basophils 0 10/09/17 0015: Troponin I 0.05 10/08/17 2245: Lactic Acid 2.6 H 10/08/17 1852: Troponin I 0.04 10/08/17 185: Lactic Acid 4.3 H 10/08/17 1720: pH 7.38, pCO2 26 L, pO2 109 H, HCO3 16 L, ABG O2 Sat (Measured) 97.0, P-50 ( Temp Corrected) Y, Carboxyhemoglobin 1 L, O2 Concentration % 40%, Temperature 97.9, Respiration Rate 24, O2 Delivery Method BIPAP, Vent Mode ST, Expiratory Pressure 4, Inspiratory Pressure 18, Phlebotomy Draw Site RIGHT RADIAL 10/08/17 1633: Lactic Acid 3.3 H, D-Dimer High Sensitivty 355 H 10/08/17 1545: pH 7.15 *L, pCO2 51 H, pO2 80, HCO3 18 L, ABG O2 Sat (Measured) 89.0 L, Carboxyhemoglobin 0.7 L, O2 Concentration % 8 LPM, O2 Delivery Method NEB, Phlebotomy Draw Site RIGHT RADIAL 10/08/17 1334: Anion Gap 16, Estimated GFR > 60, BUN/Creatinine Ratio 23.3, Glucose 174 H, Serum Osmolality 296 H, Lactic Acid 3.0 H, Calcium 9.7, Phosphorus 4.2, Total Bilirubin 1.7 H, AST 33, ALT 31, Alkaline Phosphatase 52, Troponin I 0.03, Pro- B-Natriuretic Pept 39002 H, Total Protein 7.0, Albumin 4.0, Globulin 3.0, Albumin/Globulin Ratio 1.3, TSH &T3 &Free T4 Intrp 0.891, CBC w Diff NO MAN DIFF REQ, RBC 3.71 L, MCV 88.1, MCH 29.4, MCHC 33.4, RDW 15.4 H, MPV 9.1, Gran % 80.3 H, Lymphocytes % 14.6 L, Monocytes % 4.2, Eosinophils % 0.6, Basophils % 0.3, Absolute Granulocytes 6.6 H, Absolute Lymphocytes 1.2, Absolute Monocytes 0.3, Absolute Eosinophils 0, Absolute Basophils 0 Assessment/Plan Assessment/Plan Patient has improved significantly since admission. Oxygen needs have decreased significantly. Diuresis with Lasix 40 mg IV twice a day should be continued another 24 hours. A follow-up BNP should be obtained on Wednesday to guide further diuretic needs. Continue telemetry? Yes
--- NOTE | 2017-10-09 13:22 | PN- Att Addend ---
See Addendum Attending Addendum Attending Brief Note Patient seen and examined. Plan of care discussed with the medical team and the patient. Available lab work and radiology test reports were reviewed. Patient reports decreasing difficulty breathing. She is wondering when she can go home. Denies any chest pain fever chills. Denies any sputum production. No nausea vomiting reported. Exam: General: Patient awake alert oriented without any distress CVS: S1 plus S2 without any murmur or gallops Chest: Few scattered crepitation without any wheeze. There is no respiratory distress. 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 without any focal neuro deficit and follows commands appropriately Extremities: No edema; no clubbing or cyanosis noted Current Medications Sig/Haseeb Start time Last Medication Dose Route Stop Time Status Admin Albuterol Sulfate 3 ML TID 10/09 1000 AC 10/09 INH 0941 Albuterol Sulfate 2 PUF Q4-6 PRN PRN 10/08 1715 AC INH Albuterol Sulfate 3 ML ONCE ONE 10/08 1630 DC 10/08 INH 10/08 1631 1619 Albuterol Sulfate 3 ML ONCE ONE 10/08 1630 DC 10/08 INH 10/08 1631 1619 Albuterol Sulfate 3 ML ONCE ONE 10/08 1330 DC 10/08 INH 10/08 1331 1343 Amlodipine Besylate 5 MG 1700 10/09 1700 AC PO Amlodipine Besylate 5 MG DAILY 10/09 1000 CAN PO Atorvastatin Calcium 20 MG 1700 10/09 1700 AC PO Budesonide/ 2 PUF BID 10/09 1000 AC 10/09 Formoterol Fumarate INH 0849 Furosemide 40 MG 7:30 AM, & 4:30 PM 10/09 0730 AC 10/09 IV 0755 Furosemide 40 MG ONCE ONE 10/08 1600 DC 10/08 IV 10/08 1601 1555 Furosemide 0 .STK-MED ONE 10/08 1555 DC IV Furosemide 0 .STK-MED ONE 10/08 1452 DC IV Furosemide 40 MG ONCE ONE 10/08 1445 DC 10/08 IV 10/08 1446 1454 Heparin Sodium 5,000 UNIT Q8 10/08 2200 AC 10/09 (Porcine) SC 0627 Insulin Aspart 0 TIDAC 10/08 1715 AC 10/09 SC 1219 Ipratropium [place] 2.5 ML ONCE ONE 10/08 1330 DC 10/08 INH 10/08 1331 1343 Losartan Potassium 50 MG DAILY 10/09 1000 CAN PO Losartan Potassium 50 MG DAILY 10/09 1000 CAN PO Methylprednisolone 40 MG Q8 10/08 2200 AC 10/09 IV 0627 Methylprednisolone 125 MG ONCE ONE 10/08 1345 DC 10/08 IV 10/08 1346 1341 Methylprednisolone 0 .STK-MED ONE 10/08 1342 DC .ROUTE Laboratory Tests 10/09/17 0610: Anion Gap 14, Estimated GFR 48 L, BUN/Creatinine Ratio 24.5, CBC w Diff NO MAN DIFF REQ, RBC 3.53 L, MCV 89.1, MCH 29.7, MCHC 33.3, RDW 16.0 H, MPV 10.0, Gran % 90.0 H, Lymphocytes % 9.1 L, Monocytes % 0.7 L, Eosinophils % 0, Basophils % 0.2, Absolute Granulocytes 5.4, Absolute Lymphocytes 0.5 L, Absolute Monocytes 0 L, Absolute Eosinophils 0, Absolute Basophils 0 10/09/17 0015: Troponin I 0.05 10/08/17 2245: Lactic Acid 2.6 H 10/08/17 1852: Troponin I 0.04 10/08/17 185: Lactic Acid 4.3 H 10/08/17 1720: pH 7.38, pCO2 26 L, pO2 109 H, HCO3 16 L, ABG O2 Sat (Measured) 97.0, P-50 ( Temp Corrected) Y, Carboxyhemoglobin 1 L, O2 Concentration % 40%, Temperature 97.9, Respiration Rate 24, O2 Delivery Method BIPAP, Vent Mode ST, Expiratory Pressure 4, Inspiratory Pressure 18, Phlebotomy Draw Site RIGHT RADIAL 10/08/17 1633: Lactic Acid 3.3 H, D-Dimer High Sensitivty 355 H 10/08/17 1545: pH 7.15 *L, pCO2 51 H, pO2 80, HCO3 18 L, ABG O2 Sat (Measured) 89.0 L, Carboxyhemoglobin 0.7 L, O2 Concentration % 8 LPM, O2 Delivery Method NEB, Phlebotomy Draw Site RIGHT RADIAL 10/08/17 1334: Anion Gap 16, Estimated GFR > 60, BUN/Creatinine Ratio 23.3, Glucose 174 H, Serum Osmolality 296 H, Lactic Acid 3.0 H, Calcium 9.7, Phosphorus 4.2, Total Bilirubin 1.7 H, AST 33, ALT 31, Alkaline Phosphatase 52, Troponin I 0.03, Pro- B-Natriuretic Pept 87675 H, Total Protein 7.0, Albumin 4.0, Globulin 3.0, Albumin/Globulin Ratio 1.3, TSH &T3 &Free T4 Intrp 0.891, CBC w Diff NO MAN DIFF REQ, RBC 3.71 L, MCV 88.1, MCH 29.4, MCHC 33.4, RDW 15.4 H, MPV 9.1, Gran % 80.3 H, Lymphocytes % 14.6 L, Monocytes % 4.2, Eosinophils % 0.6, Basophils % 0.3, Absolute Granulocytes 6.6 H, Absolute Lymphocytes 1.2, Absolute Monocytes 0.3, Absolute Eosinophils 0, Absolute Basophils 0 Microbiology 10/08 1639 URINE ROUT: Urine Culture - COLB Vital Signs Date Time Temp Pulse Resp B/P B/P Pulse O2 O2 Flow FiO2 Mean Ox Delivery Rate 10/09 0946 93 Nasal 4.0L Cannula 10/09 0800 Nasal 4.0L Cannula 10/09 0715 98.0 111 24 102/64 93 Nasal Cannula 10/08 2226 97.3 112 26 110/70 94 10/08 2224 Nasal 4.0L Cannula 10/08 2149 Nasal 4.0L Cannula 10/08 2032 97.4 118 38 108/74 94 10/08 1927 97.9 114 24 100/62 95 Nasal 4.0L Cannula 10/08 1835 97.9 112 24 96/54 95 Nasal 4.0L Cannula 10/08 1808 98.0 118 24 98/54 98 BIPAP 10/08 1648 97.6 108 24 100/56 97 BIPAP 10/08 1615 120 98 10/08 1614 91 10/08 1613 88 Nasal 4.0L Cannula 10/08 1609 97.6 116 24 110/60 98 BIPAP 10/08 1553 132 32 124/74 90 Non 100% ReBreather 10/08 1437 97.1 100 20 118/70 95 Room Air 10/08 1345 92 Room Air 10/08 1345 92 10/08 1327 96.7 118 26 120/66 92 Room Air Intake & Output 10/09 1600 10/09 0800 03/24 0000 Intake Total 360 Output Total 1300 950 Balance -940 -950 Intake, Oral 360 Number 1 Bowel Movements Output, Urine 1300 950 Patient 176 lb Weight Weight Reported by Patient Measurement Method CTA October 08 No filling defect to suggest a pulmonary embolism. Moderate effusion on right and small on left with adjacent basilar atelectasis or infiltrate. Patchy areas of infiltrate in the left upper lung. Mildly prominent central adenopathy may be reactive. Continued follow-up recommended. Findings suggest cirrhosis in the liver Assessment #1 acute hypoxic respiratory failure #2 acute heart failure #3 history of type 2 diabetes #4 history of hypertension #5 asthma exacerbation #6 lactic acidosis Plan * Continue IV Lasix * Continue telemetry monitoring * Measured input outputs and weight daily basis * Discontinue IV Solu-Medrol- Likely Patient Having Asthma Exacerbation at the Same Time She Is Having CHF Exacerbation * Out of bed and ambulate * Taper oxygen as tolerated * No need to check a repeat BNP
[2017-10-09 15:02] VITALS: BP 108/50
[2017-10-09 23:12] VITALS: BP 110/74
[2017-10-10 07:14] VITALS: BP 100/80
--- NOTE | 2017-10-10 09:19 | Cons- Pulmonary ---
General Information and HPI Consulting Request Date of Consult: 10/10/17 Requested By: Luke Reason for Consult: Shortness of breath and hypoxic history failure History of Present Illness: Patient is a 82-year-old with history of asthma admitted with acute hypercapnic history failure lactic acidosis chronic shortness of breath in the setting of elevated BNP chest x-ray showing congestive heart failure with bilateral right greater than left pleural effusions. She has markedly improved and her shortness of breath is resolved. She denies any sputum production chest pain or wheezing. She is not known to have underlying coronary artery disease Allergies/Medications Allergies: Coded Allergies: No Known Drug Allergies (Intermediate, NONE 10/08/17) conteh (LIP SWELLING FROM BEANS 07/02/16) Home Med List: Albuterol Sulfate (Proair Hfa) 90 MCG HFA.AER.AD 2 PUF INH Q4-6 PRN PRN SHORTNESS OF BREATH (Reported) Amlodipine Besylate 5 MG TABLET 1 TAB PO DAILY BP (Reported) Cyanocobalamin (Vitamin B-12) 1,000 MCG TABLET 1 TAB PO DAILY VITAMIN SUPPORT (Reported) Fluticasone/Salmeterol (Advair 250-50 Diskus) 250 MCG-50 MCG/DOSE BLST.W.DEV 1 PUF INH BID BREATHING PROBLEMS (Reported) Metformin HCl (Glucophage) 1,000 MG TABLET 1 TAB PO BID DIABETES (Reported) Simvastatin (Zocor*) 20 MG TABLET 1 TAB PO QPM CHOLESTEROL (Reported) Valsartan/Hydrochlorothiazide (Diovan Hct 160-12.5 MG Tab) 160 MG-12.5 MG TABLET 1 TAB PO DAILY BP (Reported) Review of Systems Review of Systems Constitutional: Denies: chills, fever. Cardiovascular: Reports: edema. Denies: chest pain. Respiratory: Reports: orthopnea, short of breath. Denies: cough, sputum production, wheezing. GI: Denies: abdominal pain, diarrhea, melena. 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 Home Smoking Status: Never Smoked ETOH Use: denies use Illicit Drug Use: denies illicit drug use Functional Ability ADLs Independent: dressing, eating, toileting, bathing. Ambulation: independent IADLs Independent: shopping, housework, finances, food prep, telephone, transportation , medication admin. Exam & Diagnostic Data Last 24 Hrs of Vital Signs/I&O Vital Signs Date Time Temp Pulse Resp B/P B/P Pulse O2 O2 Flow FiO2 Mean Ox Delivery Rate 10/10 0900 97 Nasal 4.0L Cannula 10/10 0800 Nasal 3.0L Cannula 10/10 0714 98.2 108 20 100/80 95 Nasal 3.5L Cannula 10/09 2312 97.4 117 16 110/74 95 10/09 2108 Nasal 3.0L Cannula 10/09 1835 96 Nasal 4.0L Cannula 10/09 1750 123 108/50 10/09 1502 98.1 123 24 108/50 95 Nasal Cannula 10/09 0946 93 Nasal 4.0L Cannula Oxygen saturation 4 L 97% exam for chest shows decreased breath sounds the bases there are no wheezes occasional crackles cardiac exam shows normal S1 and S2 with systolic ejection murmur abdomen is soft nontender there's no significant edema Last 48 Hrs of Labs/Mario: Laboratory Tests 10/10/17 0600: Anion Gap 13, Estimated GFR 48 L, BUN/Creatinine Ratio 31.8 H 10/09/17 1645: Lactic Acid 2.3 H 10/09/17 0610: Anion Gap 14, Estimated GFR 48 L, BUN/Creatinine Ratio 24.5, CBC w Diff NO MAN DIFF REQ, RBC 3.53 L, MCV 89.1, MCH 29.7, MCHC 33.3, RDW 16.0 H, MPV 10.0, Gran % 90.0 H, Lymphocytes % 9.1 L, Monocytes % 0.7 L, Eosinophils % 0, Basophils % 0.2, Absolute Granulocytes 5.4, Absolute Lymphocytes 0.5 L, Absolute Monocytes 0 L, Absolute Eosinophils 0, Absolute Basophils 0 10/09/17 0015: Troponin I 0.05 10/08/17 2245: Lactic Acid 2.6 H 10/08/17 1852: Troponin I 0.04 10/08/17 1852: Lactic Acid 4.3 H 10/08/17 1720: pH 7.38, pCO2 26 L, pO2 109 H, HCO3 16 L, ABG O2 Sat (Measured) 97.0, P-50 ( Temp Corrected) Y, Carboxyhemoglobin 1 L, O2 Concentration % 40%, Temperature 97.9, Respiration Rate 24, O2 Delivery Method BIPAP, Vent Mode ST, Expiratory Pressure 4, Inspiratory Pressure 18, Phlebotomy Draw Site RIGHT RADIAL 10/08/17 1633: Lactic Acid 3.3 H, D-Dimer High Sensitivty 355 H 10/08/17 1545: pH 7.15 *L, pCO2 51 H, pO2 80, HCO3 18 L, ABG O2 Sat (Measured) 89.0 L, Carboxyhemoglobin 0.7 L, O2 Concentration % 8 LPM, O2 Delivery Method NEB, Phlebotomy Draw Site RIGHT RADIAL 10/08/17 1334: Anion Gap 16, Estimated GFR > 60, BUN/Creatinine Ratio 23.3, Glucose 174 H, Serum Osmolality 296 H, Lactic Acid 3.0 H, Calcium 9.7, Phosphorus 4.2, Total Bilirubin 1.7 H, AST 33, ALT 31, Alkaline Phosphatase 52, Troponin I 0.03, Pro- B-Natriuretic Pept 08692 H, Total Protein 7.0, Albumin 4.0, Globulin 3.0, Albumin/Globulin Ratio 1.3, TSH &T3 &Free T4 Intrp 0.891, CBC w Diff NO MAN DIFF REQ, RBC 3.71 L, MCV 88.1, MCH 29.4, MCHC 33.4, RDW 15.4 H, MPV 9.1, Gran % 80.3 H, Lymphocytes % 14.6 L, Monocytes % 4.2, Eosinophils % 0.6, Basophils % 0.3, Absolute Granulocytes 6.6 H, Absolute Lymphocytes 1.2, Absolute Monocytes 0.3, Absolute Eosinophils 0, Absolute Basophils 0 Assessment/Plan Impression/Plan: 82-year-old carries diagnosis of asthma admitted with chronic shortness of breath which became significantly worse with transient acute hypercapnic respiratory failure due to congestive heart failure. The finding of pleural effusions suggest her heart failure has a degree of chronicity. At this point asthma does not appear to be a primary contributing factor to her shortness of breath Recommendations: Continue negative fluid balance. Discontinue IV Solu-Medrol and rapidly taper prednisone by 10 mg a day from 40 mg. Await cardiac ultrasound. Taper FiO2. Consult Acknowledgment - Thank you for your consult request.
--- NOTE | 2017-10-10 09:39 | PN- Housestaff ---
Subjective Follow-up For: CHF Tele-Events Since Last Visit: NSR PVC HR 971 07 Subjective: No acute events overnight. Patient states shortness. Currently off any oxygen. Review of Systems Constitutional: Reports: see HPI. Objective Last 24 Hrs of Vital Signs/I&O Vital Signs Date Time Temp Pulse Resp B/P B/P Pulse O2 O2 Flow FiO2 Mean Ox Delivery Rate 10/10 2231 97.8 107 18 100/62 92 10/10 1830 95 Room Air 10/10 1747 107 102/62 10/10 1507 97.6 107 20 10262 92 Room Air 10/10 0900 97 Nasal 4.0L Cannula 10/10 0800 Nasal 3.0L Cannula 10/10 0714 98.2 108 20 100/80 95 Nasal 3.5L Cannula Intake & Output 10/11 0800 10/11 0000 10/10 1600 Intake Total 300 Output Total 1500 Balance -1200 Intake, Oral 300 Output, Urine 1500 Physical Exam General Appearance: Alert, Oriented X3, Cooperative, currently off oxygen Cardiovascular: Regular Rate, Normal S1, Normal S2 Lungs: decreased breath sounds in mid and lower bases Abdomen: distended abd, decreased BS Extremities: 1+ LE edema Current Medications: Current Medications Sig/Haseeb Start time Last Medication Dose Route Stop Time Status Admin Albuterol Sulfate 3 ML TID 10/09 1000 AC 10/10 INH 1830 Albuterol Sulfate 2 PUF Q4-6 PRN PRN 10/08 171 AC INH Amlodipine Besylate 5 MG 0 10/09 1700 AC 10/10 PO 1747 Atorvastatin Calcium 20 MG 1700 10/09 1700 AC 10/10 PO 1747 Budesonide/ 2 PUF BID 10/09 1000 AC 10/10 Formoterol Fumarate INH 203 Furosemide 40 MG 7:30 AM, & 4:30 PM 10/10 1630 AC 10/10 PO 174 Furosemide 40 MG 7:30 AM, & 4:30 PM 10/09 0730 DC 10/10 IV 0800 Heparin Sodium 5,000 UNIT Q8 10/08 2200 AC 10/10 (Porcine) SC 203 Insulin Aspart 0 TIDAC 10/08 1715 AC 10/10 SC 1700 Prednisone 10 MG DAILY 10/13 1000 AC PO 10/13 1001 Prednisone 20 MG DAILY 10/12 1000 AC PO 10/12 1001 Prednisone 30 MG DAILY 10/11 1000 AC PO 10/11 1001 Prednisone 40 MG DAILY 10/10 1500 DC 10/10 PO 10/10 1501 1500 Prednisone 40 MG DAILY 10/10 1406 DC PO 10/14 1405 Last 24 Hrs of Lab/Mario Results Last 24 Hrs of Labs/Mics: Laboratory Tests 10/10/17 0600: Anion Gap 13, Estimated GFR 48 L, BUN/Creatinine Ratio 31.8 H Assessment/Plan Assessment: Ms Kong is an 82-year-old woman with a past history of asthma, type 2 diabetes, hypertension came to the hospital with a chief concern of dyspnea for the last one and half month, and the symptoms that got worse in the last few days to a point that she was dyspnic even at rest on the am of presentation to the ER likely secondary to acute on chronic CHF exacerbation. Problem list: #1 acute hypoxic respiratory failure #2 acute heart failure #3 history of type 2 diabetes #4 history of hypertension #5 asthma exacerbation #6 lactic acidosis #CHF/asthma exascerbation Currently off O2 Echo: 1. Fibrocalcific degeneration is present in the aortic valve with moderate to severe aortic stenosis (PG 41 mmHg; MG 26 mmHg; DU 0.9 cm2). 2. Moderate thickening and calcification of the mitral leaflets is noted extending into the subvalvular chordal structureTs. Moderate anular calcification is also noted. Ruptured chordae are noted. Mitral insufficiency is present which is eccentric and at least moderate in severity with moderate left atrial enlargement. 3. A very small pericardial effusion is noted. 4. A moderate to large sized left pleural effusion is present. 5. The left ventricular chamber size is normal. THere is hypokinesia of the mid to distal septuam and anteroapical segments noted with an ejection fraction of 35-40%. 6. The right heart chambers are upper normal in size with mild tricuspid insufficency, minimal pulmonic insufficiency and pulmonary hypertension with an estimated RV systolic pressure of 58 mmHg. 7. A fibrosed muscular band is noted traversing the LVOT with no evidence of Subvalvulat LVOT obstruction at rest. 8. A MARKIE would be useful in this patient to better assess the severity of mitral insuficiency present. -cont i/o, daily weights -cont lasix, monitor BEP -cont prednisone taper, symbicort, trc nebs #lactic acidosis Downtrended to 2.3 -monitor any signs of infection -bipap if needed #hx of diabetes -Accuchecks, and Insulin sliding scale. #mild cr elevation Cr 1.1 (baseline .9) - Hold losartan for now since she has elevated Sr Cr; , and start amlodipine, hold hydrochlorothiazide #DVT prophylaxis-subcutaneous heparin #CODE STATUS-full code. Problem List: 1. Acute respiratory failure with hypoxia 2. Lactic acidosis 3. CHF exacerbation Pain Ratin Pain Location: none Pain Goal: Pain 4 or less Pain Plan: arturo pathway Tomorrow's Labs & Rationales: cbc bep
--- NOTE | 2017-10-10 10:42 | ECHOCARDIOGRAM REPORT ---
RAJ GILLETTE Age: 82 : 1935 Gender: F Exam Date: 10/09/2017 12:55 Exam Location: [address] [facility] Ht (in): 61 Wt (lb): 176 BSA: 1.89 BP: 102 / 64 Ordering Physician: Nancy Hernandez MD Referring Physician: Yony Mejia MD Technologist: Janis Bedolla Room Number: [id number] Indications: HEART FAILURE Rhythm: Sinus Technical Quality: Fair FINDINGS Left Ventricle Normal size left ventricle. Mildly abnormal left ventricular ejection fraction estimated at 35-40%. Hypokinetic septum. Hypokinetic anterior wall. [place] hypokinetic. Right Ventricle Right ventricle at upper limits of normal. Right Atrium Right atrial dilatation. Left Atrium Moderate left atrial dilatation. Mitral Valve Moderate thickening/calcification of the anterior mitral valve leaflet. Moderate mitral annular calcification. Moderate subvalvular mitral calcification. Moderate mitral regurgitation. Anteriorly directed mitral regurgitation jet. Ruptured chordae of the posterior mitral valve leaflet. Aortic Valve Diffuse thickening of the aortic valve cusps with reduced excursion. [id number] aortic stenosis. Tricuspid Valve Tricuspid valve not well visualized, grossly normal. Mild tricuspid regurgitation. Right ventricular systolic pressure estimated to be elevated at 58 mmHg. Pulmonic Valve Pulmonic valve not well visualized, grossly normal. Trace pulmonic regurgitation. Pericardium Minimal pericardial effusion (normal variant). Left pleural effusion. Great Vessels Normal size aortic root and proximal ascending aorta. CONCLUSIONS 1. Fibrocalcific degeneration is present in the aortic valve with moderate to severe aortic stenosis (PG 41 mmHg; MG 26 mmHg; DU 0.9 cm2). 2. Moderate thickening and calcification of the mitral leaflets is noted extending into the subvalvular chordal structureTs. Moderate anular calcification is also noted. Ruptured chordae are noted. Mitral insufficiency is present which is eccentric and at least moderate in severity with moderate left atrial enlargement. 3. A very small pericardial effusion is noted. 4. A moderate to large sized left pleural effusion is present. 5. The left ventricular chamber size is normal. THere is hypokinesia of the mid to distal septuam and anteroapical segments noted with an ejection fraction of 35-40%. 6. The right heart chambers are upper normal in size with mild tricuspid insufficency, minimal pulmonic insufficiency and pulmonary hypertension with an estimated RV systolic pressure of 58 mmHg. 7. A fibrosed muscular band is noted traversing the LVOT with no evidence of Subvalvulat LVOT obstruction at rest. 8. A MARKIE would be useful in this patient to better assess the severity of mitral insuficiency present. Yony Mejia M.D. (Electronically Signed) Final Date: 10 October 2017 10:42 MEASUREMENTS (Male / Female) Normal Values 2D ECHO LV Diastolic Diameter PLAX 3.8 cm 4.2 - 5.9 / 3.9 - 5.3 cm LV Systolic Diameter PLAX 2.7 cm 2.1 - 4.0 cm LV Fractional Shortening PLAX 28.9 % 25 - 46 % LV Ejection Fraction 2D Teich 56.4 % IVS Diastolic Thickness 1.0 cm LVPW Diastolic Thickness 1.1 cm LV Relative Wall Thickness 0.6 LVOT Diameter 2.0 cm LA Systolic Diameter LX 4.8 cm 3.0 - 4.0 / 2.7 - 3.8 cm LA Volume 58.0 cm 18 - 58 / 22 - 52 cm Ascending Aorta Diameter 3.0 cm DOPPLER AV Peak Velocity 320.0 cm/s AV Peak Gradient 41.0 mmHg AV Mean Velocity 252.0 cm/s AV Mean Gradient 28.0 mmHg AV Velocity Time Integral 63.2 cm LVOT Peak Velocity 104.0 cm/s LVOT Peak Gradient 4.3 mmHg LVOT Mean Velocity 81.7 cm/s LVOT Mean Gradient 3.0 mmHg LVOT Velocity Time Integral 17.4 cm LVOT Stroke Volume 54.7 cm AV Area Cont Eq vti 0.9 cm AV Area Cont Eq pk 1.0 cm MV Peak Velocity 230.3 cm/s MV Peak Gradient 21.2 mmHg MV Mean Velocity 137.3 cm/s MV Mean Gradient 9.3 mmHg TR Peak Velocity 350.0 cm/s TR Peak Gradient 49.0 mmHg Right Atrial Pressure 10.0 mmHg Pulmonary Artery Systolic Pressu 59.0 mmHg Right Ventricular Systolic Press 59.0 mmHg PV Peak Velocity 84.1 cm/s PV Peak Gradient 2.8 mmHg PV Mean Velocity 58.8 cm/s PV Mean Gradient 2.0 mmHg PV Velocity Time Integral 10.5 cm
--- NOTE | 2017-10-10 12:10 | PN- Cardiology ---
Subjective Subjective: Patient reports feeling well, no shortness of breath. Heart rate remains around 100 at rest which is her baseline heart rate at home. Urinary catheter was removed this morning and patient is free to walk about the units. She is comfortable and eager to go back home Review of Systems: No dyspnea no palpitations no chest pains No nausea no vomiting no diarrhea Objective Vital Signs and I&Os Vital Signs Date Time Temp Pulse Resp B/P B/P Pulse O2 O2 Flow FiO2 Mean Ox Delivery Rate 10/10 0900 97 Nasal 4.0L Cannula 10/10 0800 Nasal 3.0L Cannula 10/10 0714 98.2 108 20 100/80 95 Nasal 3.5L Cannula 10/09 2312 97.4 117 16 110/74 95 10/09 2108 Nasal 3.0L Cannula 10/09 1835 96 Nasal 4.0L Cannula 10/09 1750 123 108/50 10/09 1502 98.1 123 24 108/50 95 Nasal Cannula Intake & Output 10/10 1600 10/10 0800 10/10 0000 10/09 1600 10/09 0800 10/09 0000 Intake Total 350 360 Output Total 226 350 2790 950 Balance -500 -250 -940 -950 Intake, Oral 350 360 Number 1 Bowel Movements Output, Urine 255 602 2814 950 Patient 176 lb Weight Weight Reported by Patient Measurement Method Physical Exam: Alert oriented smiling, appears comfortable HEENT exam is within normal limits Neck is supple trachea is midline no jugular venous distention is observed Cardiac: S1 and S2 are present and of normal intensity there is a 2/6 systolic ejection murmur heard in the aortic area radiating to the carotids, with good carotid upstroke. Pulmonary: Mild rhonchi at the bases no wheezing no crackles, good lung expansion bilaterally GI: Bowel sounds are normal, abdomen is nondistended, no pain upon palpation. Lower extremities are free of edema, capillary refill is within normal limits. Current Medications: Current Medications Sig/Haseeb Start time Last Medication Dose Route Stop Time Status Admin Albuterol Sulfate 3 ML TID 10/09 1000 AC 10/10 INH 0857 Albuterol Sulfate 2 PUF Q4-6 PRN PRN 10/08 1715 AC INH Amlodipine Besylate 5 MG 10/09 1700 AC 10/09 PO 1750 Atorvastatin Calcium 20 MG 10/09 1700 AC 10/09 PO 1750 Budesonide/ 2 PUF BID 10/09 1000 AC 10/10 Formoterol Fumarate INH 0855 Furosemide 40 MG 7:30 AM, & 4:30 PM 10/09 0730 AC 10/10 IV 0800 Heparin Sodium 5,000 UNIT Q8 10/08 2200 AC 10/10 (Porcine) SC 0607 Insulin Aspart 0 TIDAC 10/08 1715 AC 10/10 SC 0800 Methylprednisolone 40 MG Q8 10/08 2200 DC 10/09 IV 0627 Results Last 48 Hrs of Labs/Mics: Laboratory Tests 10/10/17 0600: Anion Gap 13, Estimated GFR 48 L, BUN/Creatinine Ratio 31.8 H 10/09/17 1645: Lactic Acid 2.3 H 10/09/17 0610: Anion Gap 14, Estimated GFR 48 L, BUN/Creatinine Ratio 24.5, CBC w Diff NO MAN DIFF REQ, RBC 3.53 L, MCV 89.1, MCH 29.7, MCHC 33.3, RDW 16.0 H, MPV 10.0, Gran % 90.0 H, Lymphocytes % 9.1 L, Monocytes % 0.7 L, Eosinophils % 0, Basophils % 0.2, Absolute Granulocytes 5.4, Absolute Lymphocytes 0.5 L, Absolute Monocytes 0 L, Absolute Eosinophils 0, Absolute Basophils 0 10/09/17 0015: Troponin I 0.05 10/08/17 2245: Lactic Acid 2.6 H 10/08/17 1852: Troponin I 0.04 10/08/17 1852: Lactic Acid 4.3 H 10/08/17 1720: pH 7.38, pCO2 26 L, pO2 109 H, HCO3 16 L, ABG O2 Sat (Measured) 97.0, P-50 ( Temp Corrected) Y, Carboxyhemoglobin 1 L, O2 Concentration % 40%, Temperature 97.9, Respiration Rate 24, O2 Delivery Method BIPAP, Vent Mode ST, Expiratory Pressure 4, Inspiratory Pressure 18, Phlebotomy Draw Site RIGHT RADIAL 10/08/17 1633: Lactic Acid 3.3 H, D-Dimer High Sensitivty 355 H 10/08/17 1545: pH 7.15 *L, pCO2 51 H, pO2 80, HCO3 18 L, ABG O2 Sat (Measured) 89.0 L, Carboxyhemoglobin 0.7 L, O2 Concentration % 8 LPM, O2 Delivery Method NEB, Phlebotomy Draw Site RIGHT RADIAL 10/08/17 1334: Anion Gap 16, Estimated GFR > 60, BUN/Creatinine Ratio 23.3, Glucose 174 H, Serum Osmolality 296 H, Lactic Acid 3.0 H, Calcium 9.7, Phosphorus 4.2, Total Bilirubin 1.7 H, AST 33, ALT 31, Alkaline Phosphatase 52, Troponin I 0.03, Pro- B-Natriuretic Pept 29571 H, Total Protein 7.0, Albumin 4.0, Globulin 3.0, Albumin/Globulin Ratio 1.3, TSH &T3 &Free T4 Intrp 0.891, CBC w Diff NO MAN DIFF REQ, RBC 3.71 L, MCV 88.1, MCH 29.4, MCHC 33.4, RDW 15.4 H, MPV 9.1, Gran % 80.3 H, Lymphocytes % 14.6 L, Monocytes % 4.2, Eosinophils % 0.6, Basophils % 0.3, Absolute Granulocytes 6.6 H, Absolute Lymphocytes 1.2, Absolute Monocytes 0.3, Absolute Eosinophils 0, Absolute Basophils 0 Assessment/Plan Assessment/Plan 82-year-old patient with diastolic heart failure which is compensated at the moment. Kidney function has remained stable. I would stop IV Lasix and switch to tablet form once patient is Solu-Medrol, and continue to follow electrolytes and kidney function. Continue telemetry? No
--- NOTE | 2017-10-10 12:45 | PN- Att Addend ---
Attending Addendum Attending Brief Note Patient seen and examined. Plan of care discussed with the medical team and the patient. Available lab work and radiology test reports were reviewed. Patient is much better and she denies any difficulty breathing. She was taken off oxygen this morning. She is wondering when she can go home. Denies any chest pain fever chills. Denies any sputum production. No nausea vomiting reported. Exam: General: Patient awake alert oriented without any distress CVS: S1 plus S2 without any murmur or gallops Chest: Few scattered crepitation without any wheeze. There is no respiratory distress. 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 I feel no need to give her steroids * Plan for discharge in a.m. Current Medications Sig/Haseeb Start time Last Medication Dose Route Stop Time Status Admin Albuterol Sulfate 3 ML TID 10/09 1000 AC 10/10 INH 0857 Albuterol Sulfate 2 PUF Q4-6 PRN PRN 10/08 1715 AC INH Amlodipine Besylate 5 MG 10/09 1700 AC 10/09 PO 1750 Atorvastatin Calcium 20 MG 1700 10/09 1700 AC 10/09 PO 1750 Budesonide/ 2 PUF BID 10/09 1000 AC 10/10 Formoterol Fumarate INH 0855 Furosemide 40 MG 7:30 AM, & 4:30 PM 10/09 0730 AC 10/10 IV 0800 Heparin Sodium 5,000 UNIT Q8 10/08 2200 AC 10/10 (Porcine) SC 0607 Insulin Aspart 0 TIDAC 10/08 1715 AC 10/10 SC 0800 Methylprednisolone 40 MG Q8 10/08 2200 DC 10/09 IV 0627 Laboratory Tests 10/10/17 0600: Anion Gap 13, Estimated GFR 48 L, BUN/Creatinine Ratio 31.8 H 10/09/17 1645: Lactic Acid 2.3 H 10/09/17 0610: Anion Gap 14, Estimated GFR 48 L, BUN/Creatinine Ratio 24.5, CBC w Diff NO MAN DIFF REQ, RBC 3.53 L, MCV 89.1, MCH 29.7, MCHC 33.3, RDW 16.0 H, MPV 10.0, Gran % 90.0 H, Lymphocytes % 9.1 L, Monocytes % 0.7 L, Eosinophils % 0, Basophils % 0.2, Absolute Granulocytes 5.4, Absolute Lymphocytes 0.5 L, Absolute Monocytes 0 L, Absolute Eosinophils 0, Absolute Basophils 0 10/09/17 0015: Troponin I 0.05 10/08/17 2245: Lactic Acid 2.6 H 10/08/17 1852: Troponin I 0.04 10/08/17 185: Lactic Acid 4.3 H 10/08/17 1720: pH 7.38, pCO2 26 L, pO2 109 H, HCO3 16 L, ABG O2 Sat (Measured) 97.0, P-50 ( Temp Corrected) Y, Carboxyhemoglobin 1 L, O2 Concentration % 40%, Temperature 97.9, Respiration Rate 24, O2 Delivery Method BIPAP, Vent Mode ST, Expiratory Pressure 4, Inspiratory Pressure 18, Phlebotomy Draw Site RIGHT RADIAL 10/08/17 1633: Lactic Acid 3.3 H, D-Dimer High Sensitivty 355 H 10/08/17 1545: pH 7.15 *L, pCO2 51 H, pO2 80, HCO3 18 L, ABG O2 Sat (Measured) 89.0 L, Carboxyhemoglobin 0.7 L, O2 Concentration % 8 LPM, O2 Delivery Method NEB, Phlebotomy Draw Site RIGHT RADIAL 10/08/17 1334: Anion Gap 16, Estimated GFR > 60, BUN/Creatinine Ratio 23.3, Glucose 174 H, Serum Osmolality 296 H, Lactic Acid 3.0 H, Calcium 9.7, Phosphorus 4.2, Total Bilirubin 1.7 H, AST 33, ALT 31, Alkaline Phosphatase 52, Troponin I 0.03, Pro- B-Natriuretic Pept 60470 H, Total Protein 7.0, Albumin 4.0, Globulin 3.0, Albumin/Globulin Ratio 1.3, TSH &T3 &Free T4 Intrp 0.891, CBC w Diff NO MAN DIFF REQ, RBC 3.71 L, MCV 88.1, MCH 29.4, MCHC 33.4, RDW 15.4 H, MPV 9.1, Gran % 80.3 H, Lymphocytes % 14.6 L, Monocytes % 4.2, Eosinophils % 0.6, Basophils % 0.3, Absolute Granulocytes 6.6 H, Absolute Lymphocytes 1.2, Absolute Monocytes 0.3, Absolute Eosinophils 0, Absolute Basophils 0 Microbiology 10/08 1639 URINE ROUT: Urine Culture - CAN Cancelled: SPECIMEN NOT RECEIVED IN LABORATORY Vital Signs Date Time Temp Pulse Resp B/P B/P Pulse O2 O2 Flow FiO2 Mean Ox Delivery Rate 10/10 0900 97 Nasal 4.0L Cannula 10/10 0800 Nasal 3.0L Cannula 10/10 0714 98.2 108 20 100/80 95 Nasal 3.5L Cannula 10/09 2312 97.4 117 16 110/74 95 10/09 2108 Nasal 3.0L Cannula 10/09 1835 96 Nasal 4.0L Cannula 10/09 1750 123 108/50 10/09 1502 98.1 123 24 108/50 95 Nasal Cannula Intake & Output 10/10 1600 10/10 0800 10/10 0000 Intake Total Output Total 500 Balance -500 Output, Urine 500 Echo 1. Fibrocalcific degeneration is present in the aortic valve with moderate to severe aortic stenosis (PG 41 mmHg; MG 26 mmHg; DU 0.9 cm2). 2. Moderate thickening and calcification of the mitral leaflets is noted extending into the subvalvular chordal structureTs. Moderate anular calcification is also noted. Ruptured chordae are noted. Mitral insufficiency is present which is eccentric and at least moderate in severity with moderate left atrial enlargement. 3. A very small pericardial effusion is noted. 4. A moderate to large sized left pleural effusion is present. 5. The left ventricular chamber size is normal. THere is hypokinesia of the mid to distal septuam and anteroapical segments noted with an ejection fraction of 35-40%. 6. The right heart chambers are upper normal in size with mild tricuspid insufficency, minimal pulmonic insufficiency and pulmonary hypertension with an estimated RV systolic pressure of 58 mmHg. 7. A fibrosed muscular band is noted traversing the LVOT with no evidence of Subvalvulat LVOT obstruction at rest. 8. A MARKIE would be useful in this patient to better assess the severity of mitral insuficiency present.
[2017-10-10 15:07] VITALS: BP 102/62
[2017-10-10 22:31] VITALS: BP 100/62
[2017-10-11 06:00] VITALS: BP 104/60
[2017-10-11 07:58] LABS: ABSOLUTE BASOPHIL COUNT 0 /CUMM (0.0-0.2); ABSOLUTE EOSINOPHIL COUNT 0 /CUMM (0.0-0.7); ABSOLUTE GRANULOCYTE CT 7.1 /CUMM (1.4-6.5); ABSOLUTE LYMPH COUNT 0.7 /CUMM (1.2-3.4); ABSOLUTE MONOCYTE COUNT 0.3 /CUMM (0.10-0.60); BASOPHIL % 0.2 % (0.0-2.0); EOSINOPHIL % 0 % (0-5); HEMATOCRIT 32.3 % (37-47); MEAN CORPUSCULAR HGB 29.7 PG (27.0-31.0); MEAN CORPUSCULAR HGB CONC 33.3 G/DL (33.0-37.0); MEAN CORPUSCULAR VOLUME 89.1 FL (81.0-99.0); PLATELET COUNT 147 /CUMM (130-400); RBC DISTRIBUTION WIDTH 15.8 % (11.5-14.5); RED BLOOD CELL CT 3.63 /CUMM (4.20-5.40); WHITE BLOOD CELL COUNT 8.1 /CUMM (4.8-10.8)
[2017-10-11] MEDS ORDERED: LASIX40 M1 PO (07:59)
--- NOTE | 2017-10-11 08:00 | Patient Discharge Instructions ---
Discharge Instructions General Discharge Information Special Instructions: - Please follow up with your frit mixer Dr. Mejia within 1-2 weeks of discharge, for your MARKIE, and cardiac catherization. - Please follow up with your primary care physician within 1-2 weeks of discharge. Inform your primary care physician of this admission to [facility]. - Continue your current medications per discharge instructions. - Please watch for these problems: Fever, Chills, Nausea, Vomiting, Shortness of Breath, Productive Cough, Chest Pain/Discomfort, Abdominal Pain, Active Bleeding or Bloody urine/stool. Diet Continue normal diet: Yes Recommended Diet: Heart Healthy Activity Full Activity/No Limits: Yes Acute Coronary Syndrome Inclusion Criteria At DC or during hospital stay patient has or had the following: ACS DIAGNOSIS No Discharge Core Measures Meds if any: Prescribed or Continued at Discharge Meds if any: NOT Prescribed or Continued at Discharge Congestive Heart Failure Inclusion Criteria At DC or during hospital stay patient has or had the following: CHF DIAGNOSIS Yes Discharge Core Measures Meds if any: Prescribed or Continued at Discharge MAXIMUS/ARB for EF <40% Yes Meds if any: NOT Prescribed or Continued at Discharge Cerebrovascular accident Inclusion Criteria At DC or during hospital stay patient has or had the following: CVA/TIA Diagnosis No Discharge Core Measures Meds if any: Prescribed or Continued at Discharge Meds if any: NOT Prescribed or Continued at Discharge Venous thromboembolism Inclusion Criteria VTE Diagnosis No VTE Type NONE VTE Confirmed by (Test) NONE Discharge Core Measures - Per Current guidelines, there needs to be overlap - treatment for the first 5 days of Warfarin therapy. - If discharged on Warfarin prior to 5 days of - overlap therapy, the patient will need to be - assessed for post discharge needs including - *Post discharge parental anticoagulation - *Warfarin and/or parental anticoagulation education - *Follow up date to check INR post discharge At least 5 days overlap therapy as Inpatient No Meds if any: Prescribed or Continued at Discharge Note: Overlap Therapy is Warfarin and Anticoagulant Meds if any: NOT Prescribed or Continued at Discharge
--- NOTE | 2017-10-11 08:06 | PN- Pulmonary ---
Subjective HPI/Critical Care Issues: Patient feels markedly improved and comfortable on room air. Cardiac ultrasound results reviewed. Patient was likely acute on chronic congestive heart failure based on presence of effusions aortic stenosis mitral regurgitation and reduced ejection fraction. Objective Current Medications: Current Medications Sig/Haseeb Start time Last Medication Dose Route Stop Time Status Admin Albuterol Sulfate 3 ML TID 10/09 1000 AC 10/10 INH 1830 Albuterol Sulfate 2 PUF Q4-6 PRN PRN 10/08 1715 AC INH Amlodipine Besylate 5 MG 1700 10/09 1700 AC 10/10 PO 1747 Atorvastatin Calcium 20 MG 1700 10/09 1700 AC 10/10 PO 1747 Budesonide/ 2 PUF BID 10/09 1000 AC 10/10 Formoterol Fumarate INH 2031 Furosemide 40 MG 7:30 AM, & 4:30 PM 10/10 1630 AC 10/10 PO 1748 Furosemide 40 MG 7:30 AM, & 4:30 PM 10/09 0730 DC 10/10 IV 0800 Heparin Sodium 5,000 UNIT Q8 10/08 2200 AC 10/11 (Porcine) SC 0603 Insulin Aspart 0 TIDAC 10/08 1715 AC 10/10 SC 1700 Prednisone 10 MG DAILY 10/13 1000 AC PO 10/13 1001 Prednisone 20 MG DAILY 10/12 1000 AC PO 10/12 1001 Prednisone 30 MG DAILY 10/11 1000 AC PO 10/11 1001 Prednisone 40 MG DAILY 10/10 1500 DC 10/10 PO 10/10 1501 1500 Prednisone 40 MG DAILY 10/10 1406 DC PO 10/14 1405 Vital Signs & I&O Last 24 Hrs of Vitals and I&O: Vital Signs Date Time Temp Pulse Resp B/P B/P Pulse O2 O2 Flow FiO2 Mean Ox Delivery Rate 10/11 06 98.0 112 18 104/60 93 10/10 2231 97.8 107 18 100/62 92 10/10 1830 95 Room Air 10/10 1747 107 102/62 10/10 1507 97.6 107 20 102/62 92 Room Air 10/10 0900 97 Nasal 4.0L Cannula Intake & Output 10/11 1600 10/11 0800 10/11 0000 Intake Total 150 100 Output Total 650 250 Balance -500 -150 Intake, Oral 150 100 Output, Urine 650 250 Patient 194 lb Weight Room air oxygen saturation 93% exam for chest shows diminished breath sounds at the bases cardiac exam shows regular S1 and S2 and systolic ejection murmur Impression/Plan Impression/Plan Impression/Plan: 82-year-old woman presented with increased shortness of breath related to congestive heart failure with reduced ejection fraction and valvular heart disease. Recommendations: Further cardiac input regarding management of reduced ejection fraction and valvular heart disease. Rapidly taper prednisone as I believe asthma was not the primary component of her shortness of breath. She will need follow-up chest x-rays to determine resolution of her pleural effusion
[2017-10-11 08:38] LABS: GRANULOCYTE % 87.7 % (42.2-75.2)
--- NOTE | 2017-10-11 08:49 | Discharge Summary ---
Visit Information Visit Dates Admission Date: 10/08/17 Discharge Date: 10/12/2017 Hospital Course Course Attending Physician: Tanner Gao MD Primary Care Physician: Olu Roca MD Hospital Course: Ms Kong is an 82-year-old woman with a past history of asthma, type 2 diabetes, hypertension came to the hospital with a chief concern of dyspnea for the last one and half month, and the symptoms that got worse in the last few days to a point that she was dyspnic even at rest on the am of presentation to the ER likely secondary to acute on chronic CHF exacerbation. Patient had asthma since childhood, was dormant on symptoms for a long time and started again. The use of her inhalers was about the same for the past 1.5 months, despite her symtoms persist. Patient denied history of hospital admission of asthma. During our clinical interaction, patient's tachycardia persisted, and appeared to be anxious and endorsed history of anxiety. Patient's baseline was ambulating freely without a walker, and could walk up to 3 miles. Patient denied recent fever/night sweat/weight change/mood change/insomnia, dietary/appetite change. Patient denied Chest Pain/Palpitation/exercise intolerance/Abdominal pain, bowel movement/urinary abnormality, or other skin/musculoskeletal/neurological disorders. On admission, Vitals: Stable afebrile. 95% O2 sats 2L, however patient started desatting and was subsequently put on BiPAP, HR 100, RR 20, BP 118/70 -CBC: WBC 8.2, H/H 10.9/42.7, PLT 105, -BMP: Unremarkable, glucose 174, lactic acid 3.0, -Misc: ProBNP 25371 without previous labs, troponin 0 0.03, -AB.15/51/80/18/89% -CXR: Interstitial edema, small effusions consistent with congestive heart failure. -EKG: Sinus tachycardia without significant ST-T abnormalities. 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 Erosive gastroduodenitis. 2. Erosive esophagitis. 3. No varices nor evident portal hypertensive gastropathy. -Interventions in ER: IV Lasix 402, Solu-Medrol 125 IV 1, Atrovent/Proventil nebulizer, started on BiPAP, Lasix She was admitted to Telemetry for the management of the following: Problem list: # acute hypoxic respiratory failure, resolved # acute on systolic HFrEF # history of type 2 diabetes # history of hypertension # history of asthma # lactic acidosis, resolved # Severe Aortic stenosis Upon admission, patient was started on BiPAP to counter her acute hypoxic respiratory failure, IV Lasix for diuretics, IV Solu-Medrol for possible asthma exacerbation, however switch to oral prednisone later as patient's clinical picture more resembled a CHF exacerbation picture. Daily weights/input/output were monitored to make sure patient was kept on the negative fluid balance for adequate diuresis. Total respiratory care/nebulizer as needed, and continue patient's home meds including Symbicort. Chest x-ray 2 have been carried out, despite showing no significant interval change in small bilateral pleural effusions and bibasilar hazy airspace disease, patient's oxygen need rapidly tapered off and was kept off oxygen. Patient's echocardiogram revealed severe aortic stenosis (PG 41 mmHg; MG 26 mmHg ; DU 0.9 cm2), mitral valve insufficiency with possible ruptured cord, reduced ejection fraction of 35-40%. Patient will require MARKIE for aortic stenosis and mitral insufficiency for outpatient follow-up, and possible coronary angiography to evaluate her coronary arteries, and possible percutaneous trans-luminal coronary angioplasty. Patient's tachycardia was not completely resolved prior to discharge, and would range from 90s-100s, however she could ambulate without increased oxygen needs. Given her tachycardia, and her HFR EF, patient would benefit from a beta-shanthi , however given her borderline hypotension, patient's may have worsening hypotension once beta shanthi started. Patient will be discharged on low-dose Lasix 20 mg daily to maintain her on negative fluid balance, and pending to switch to low-dose beta-shanthi in outpatient cardiology follow-up. Patient's lactic acidosis on admission was resolved spontaneously, likely secondary to her use of accessory muscles during respiratory failure on admission. Patient had mild creatinine elevation from her baseline 0.9-1.1 total hospital course, possibly due to use of Lasix. Patient's losartan/HCTZ was held during the hospital course. Patient was On Accu-Cheks, insulin sliding scale for her history of diabetes. #DVT prophylaxis-subcutaneous heparin #CODE STATUS-full code. Allergies: Coded Allergies: No Known Drug Allergies (Intermediate, NONE 10/08/17) conteh (LIP SWELLING FROM BEANS 07/02/16) Pertinent Lab Results: SERVICE DATE: 10/08/17-133 EXAM TYPE: RAD - XRY-PORTABLE CHEST XRAY IMPRESSION: There is interstitial edema and small effusions consistent with congestive heart failure. Superimposed pneumonia cannot be definitively excluded but is felt to be less likely. SERVICE DATE: 10/08/17-154 EXAM TYPE: CAT - CTA CHEST-PULMONARY EMBOLISM IMPRESSION: No filling defect to suggest a pulmonary embolism. Moderate effusion on right and small on left with adjacent basilar atelectasis or infiltrate. Patchy areas of infiltrate in the left upper lung. Mildly prominent central adenopathy may be reactive. Continued follow-up recommended. Findings suggest cirrhosis in the liver SERVICE DATE: 10/09/17- EXAM TYPE: CARD - ECHOCARDIOGRAM CONCLUSIONS 1. Fibrocalcific degeneration is present in the aortic valve with moderate to severe aortic stenosis (PG 41 mmHg; MG 26 mmHg; DU 0.9 cm2). 2. Moderate thickening and calcification of the mitral leaflets is noted extending into the subvalvular chordal structureTs. Moderate anular calcification is also noted. Ruptured chordae are noted. Mitral insufficiency is present which is eccentric and at least moderate in severity with moderate left atrial enlargement. 3. A very small pericardial effusion is noted. 4. A moderate to large sized left pleural effusion is present. 5. The left ventricular chamber size is normal. THere is hypokinesia of the mid to distal septuam and anteroapical segments noted with an ejection fraction of 35-40%. 6. The right heart chambers are upper normal in size with mild tricuspid insufficency, minimal pulmonic insufficiency and pulmonary hypertension with an estimated RV systolic pressure of 58 mmHg. 7. A fibrosed muscular band is noted traversing the LVOT with no evidence of Subvalvulat LVOT obstruction at rest. 8. A MARKIE would be useful in this patient to better assess the severity of mitral insuficiency present. Yony Mejia M.D. (Electronically Signed) Disposition Summary Disposition Principal Diagnosis: #1 acute hypoxic respiratory failure #2 acute heart failure #3 history of type 2 diabetes #4 history of hypertension #5 asthma exacerbation #6 lactic acidosis #7 aortic stenosis severe with a valve area of 0.9 cm #8 mitral valve insufficiency Additional Diagnosis: As above Discharge Disposition: home or self care Discharge Instructions General Discharge Information Code Status: Full Code Patient's Diet: CHF Diet Patient's Activity: As tolerated Follow-Up Instructions/Appts: - Please follow up with your osteopathy doctor Dr. Mejia within 1-2 weeks of discharge, for your MARKIE, and cardiac catherization. - Please follow up with your primary care physician within 1-2 weeks of discharge. Inform your primary care physician of this admission to [facility]. - Continue your current medications per discharge instructions. - Please watch for these problems: Fever, Chills, Nausea, Vomiting, Shortness of Breath, Productive Cough, Chest Pain/Discomfort, Abdominal Pain, Active Bleeding or Bloody urine/stool. Medications at Discharge Discharge Medications: Continue taking these medications: Metformin HCl (Glucophage) 1,000 MG TABLET 1 Tablet ORAL TWICE DAILY Comments: DOCUMENTED PER CMR DURING PRE-SX INTERVIEW NO TGIVEN IN HOSPITAL Valsartan/Hydrochlorothiazide (Diovan Hct 160-12.5 MG Tab) 160 MG-12.5 MG TABLET 1 Tablet ORAL DAILY Comments: DOCUMENTED PER CMR DURING PRE-SX INTERVIEW NOT GIVEN IN HOSPITAL Simvastatin (Zocor*) 20 MG TABLET 1 Tablet ORAL Every night Comments: DOCUMENTED PER CMR DURING PRE-SX INTERVIEW ATORVASTATIN GIVEN IN HOSPITAL Last Taken: 10/11/17 Time: 16:31 PM Amlodipine Besylate (Amlodipine Besylate) 5 MG TABLET 1 Tablet ORAL DAILY Comments: Last Taken: 10/11/17 Time: 16:31 PM Cyanocobalamin (Vitamin B-12) 1,000 MCG TABLET 1 Tablet ORAL DAILY Comments: NOT GIVEN IN HOSPITAL Fluticasone/Salmeterol (Advair 250-50 Diskus) 250 MCG-50 MCG/DOSE BLST.W.DEV 1 Puff Inhale through mouth TWICE DAILY Qty = 60 Comments: NOT GIVEN IN HOSPITAL Albuterol Sulfate (Proair Hfa) 90 MCG HFA.AER.AD 2 Puff Inhale through mouth EVERY 4-6 HOURS NEEDED as needed for SHORTNESS OF BREATH Qty = 9 Comments: 3 ML NEB TMT GIVEN IN HOSPITAL Start taking the following new medications: Furosemide (Lasix) 20 MG TABLET 1 Tablet ORAL DAILY Qty = 30 No Refills Instructions: . Comments: Last Taken:10/12/17 Time:8AM Prednisone (Prednisone) 10 MG TABLET 1 Tablet ORAL DAILY Qty = 1 No Refills Instructions: .. Comments: 10/13: Take 1 tablet, once daily Copies To: Abelino SEYMOUR,Olu Tobin
--- NOTE | 2017-10-11 08:58 | PN- Housestaff ---
Subjective Follow-up For: #1 acute hypoxic respiratory failure #2 acute heart failure #3 history of type 2 diabetes #4 history of hypertension #5 asthma exacerbation #6 lactic acidosis #7 aortic stenosis severe with a valve area of 0.9 cm #8 mitral valve insufficiency Tele-Events Since Last Visit: Off Tele Subjective: no overnight event. Patient had no specific complaint and stated that she felt much better on respiratory status and ready to go home. Review of Systems Constitutional: Reports: see HPI. Objective Last 24 Hrs of Vital Signs/I&O Vital Signs Date Time Temp Pulse Resp B/P B/P Pulse O2 O2 Flow FiO2 Mean Ox Delivery Rate 10/11 0828 97 Room Air Room Air 10/11 0600 98.0 112 18 104/60 93 10/10 2231 97.8 107 18 100/62 92 10/10 1830 95 Room Air 10/10 1747 107 102/62 10/10 1507 97.6 107 20 102/62 92 Room Air Intake & Output 10/11 1600 10/11 0800 10/11 0000 Intake Total 150 100 Output Total 650 250 Balance -500 -150 Intake, Oral 150 100 Output, Urine 650 250 Patient 87.997 kg Weight Physical Exam General Appearance: Alert, Oriented X3, Cooperative, No Acute Distress Cardiovascular: Regular Rate, Normal S1, Normal S2 Lungs: Normal Air Movement Abdomen: Soft, No Tenderness Neurological: Normal Speech Extremities: No Edema, Normal Pulses Current Medications: Current Medications Sig/Haseeb Start time Last Medication Dose Route Stop Time Status Admin Albuterol Sulfate 3 ML TID 10/09 1000 AC 10/11 INH 0825 Albuterol Sulfate 2 PUF Q4-6 PRN PRN 10/08 1714 AC INH Amlodipine Besylate 5 MG 10/09 1700 AC 10/10 PO 1747 Atorvastatin Calcium 20 MG 0 10/09 1700 AC 10/10 PO 1747 Budesonide/ 2 PUF BID 10/09 1000 AC 10/11 Formoterol Fumarate INH 0928 Furosemide 40 MG 7:30 AM, & 4:30 PM 10/10 1630 AC 10/11 PO 0928 Furosemide 40 MG 7:30 AM, & 4:30 PM 10/09 0730 DC 10/10 IV 0800 Heparin Sodium 5,000 UNIT Q8 10/08 2200 10/11 (Porcine) SC 0603 Insulin Aspart 0 TIDAC 10/08 1715 AC 10/11 WV 0928 Prednisone 10 MG DAILY 10/13 1000 AC PO 10/13 1001 Prednisone 20 MG DAILY 10/12 1000 AC PO 10/12 1001 Prednisone 30 MG DAILY 10/11 1000 DC 10/11 PO 10/11 1001 0928 Prednisone 40 MG DAILY 10/10 1500 DC 10/10 PO 10/10 1501 1500 Prednisone 40 MG DAILY 10/10 1406 DC PO 10/14 1405 Last 24 Hrs of Lab/Mario Results Last 24 Hrs of Labs/Mics: Laboratory Tests 10/11/17 0638: Anion Gap 13, Estimated GFR 48 L, BUN/Creatinine Ratio 30.9 H, Pro-B- Natriuretic Pept 82450 H, CBC w Diff NO MAN DIFF REQ, RBC 3.63 L, MCV 89.1, MCH 29.7, MCHC 33.3, RDW 15.8 H, MPV 10.0, Gran % 87.7 H, Lymphocytes % 8.8 L , Monocytes % 3.3, Eosinophils % 0, Basophils % 0.2, Absolute Granulocytes 7.1 H, Absolute Lymphocytes 0.7 L, Absolute Monocytes 0.3, Absolute Eosinophils 0, Absolute Basophils 0 Assessment/Plan Assessment: Ms Kong is an 82-year-old woman with a past history of asthma, type 2 diabetes, hypertension came to the hospital with a chief concern of dyspnea for the last one and half month, and the symptoms that got worse in the last few days to a point that she was dyspnic even at rest on the am of presentation to the ER likely secondary to acute on chronic CHF exacerbation. Problem list: #1 acute hypoxic respiratory failure #2 acute on systolic congestive heart failure #3 history of type 2 diabetes #4 history of hypertension #5 asthma exacerbation #6 lactic acidosis #Systolic CHF exascerbation Currently off O2 Echo: 1. Fibrocalcific degeneration is present in the aortic valve with moderate to severe aortic stenosis (PG 41 mmHg; MG 26 mmHg; DU 0.9 cm2). 2. Moderate thickening and calcification of the mitral leaflets is noted extending into the subvalvular chordal structureTs. Moderate anular calcification is also noted. Ruptured chordae are noted. Mitral insufficiency is present which is eccentric and at least moderate in severity with moderate left atrial enlargement. 3. A very small pericardial effusion is noted. 4. A moderate to large sized left pleural effusion is present. 5. The left ventricular chamber size is normal. THere is hypokinesia of the mid to distal septuam and anteroapical segments noted with an ejection fraction of 35-40%. 6. The right heart chambers are upper normal in size with mild tricuspid insufficency, minimal pulmonic insufficiency and pulmonary hypertension with an estimated RV systolic pressure of 58 mmHg. 7. A fibrosed muscular band is noted traversing the LVOT with no evidence of Subvalvulat LVOT obstruction at rest. 8. A MARKIE would be useful in this patient to better assess the severity of mitral insuficiency present. -cont i/o, daily weights -cont lasix, monitor BEP -cont prednisone taper, will taper rapid as patient's current clinical picture + Echo warrant more CHF exacerbation rather than asthma flare -cont symbicort, trc nebs as needed. -Repeat CXR AP today to reassess pleural effusion. -Restart Telemetry as patient's tachycardia was not completely resolved before discontinuation, and would need further management, eg. Coreg, provided that patient's BP would tolerated. - ambulate w/ O2/BP check today. -Pending cardio consult on further care plan in-hospital or outpatient. #lactic acidosis Downtrended to 2.3 on latest lab -monitor any signs of infection -bipap if needed #hx of diabetes -Accuchecks, and Insulin sliding scale. #mild cr elevation Cr 1.1 (baseline .9) - Hold losartan/HCTZ for now since she has elevated Sr Cr; , and continue amlodipine 5mg qd. #DVT prophylaxis-subcutaneous heparin #CODE STATUS-full code. Problem List: 1. CHF exacerbation 2. Pulmonary hypertension 3. Aortic stenosis Pain Ratin Pain Location: NA Pain Goal: Remain pain free Pain Plan: see AP Tomorrow's Labs & Rationales: BEP
[2017-10-11] MEDS ORDERED: PREDNISONE10 M2 PO ×2 (09:34→15:41)
[2017-10-11 11:15] VITALS: BP 112/74
--- NOTE | 2017-10-11 12:15 | RADIOLOGY REPORT ---
EXAMINATION: XR CHEST CLINICAL INFORMATION: 82-year-old female with CHF follow-up evaluation. COMPARISON: CTA chest and chest radiograph 10/08/2017 TECHNIQUE: 2 views of the chest were obtained. FINDINGS: Stable cardiomegaly. Atherosclerotic aorta. The hilar structures appear prominent, unchanged. No lobar consolidation. No definite pulmonary edema. No significant change in small bilateral pleural effusions and bibasilar hazy airspace disease. No acute osseous abnormality. IMPRESSION: No significant interval change in small bilateral pleural effusions and bibasilar hazy airspace disease.
--- NOTE | 2017-10-11 12:32 | PN- Cardiology ---
Subjective Subjective: The patient's feeling somewhat better. Anxious to go home. Today, she is off of patient monitor. Status of heart rate and rhythm unclear. Ambulating without oxygen. Objective Vital Signs and I&Os Vital Signs Date Time Temp Pulse Resp B/P B/P Pulse O2 O2 Flow FiO2 Mean Ox Delivery Rate 10/11 1115 98.0 112 95 112/74 Room Air 10/11 0828 97 Room Air Room Air 10/11 0600 98.0 112 18 104/60 93 10/10 2231 97.8 107 18 100/62 92 10/10 1830 95 Room Air 10/10 1747 107 102/62 10/10 1507 97.6 107 20 102/62 92 Room Air Intake & Output 10/11 1600 10/11 0800 10/11 0000 10/10 1600 10/10 0800 10/10 0000 Intake Total 150 100 300 Output Total 454 937 7361 Balance -500 -150 -1200 Intake, Oral 150 100 300 Output, Urine 217 613 2926 Patient 194 lb Weight Current Medications: Current Medications Sig/Haseeb Start time Last Medication Dose Route Stop Time Status Admin Albuterol Sulfate 3 ML TID 10/09 1000 AC 10/11 INH 0825 Albuterol Sulfate 2 PUF Q4-6 PRN PRN 10/08 171 AC INH Amlodipine Besylate 5 MG 1700 10/09 1700 AC 10/10 PO 1747 Atorvastatin Calcium 20 MG 1700 10/09 1700 AC 10/10 PO 1747 Budesonide/ 2 PUF BID 10/09 1000 AC 10/11 Formoterol Fumarate INH 0928 Furosemide 40 MG 7:30 AM, & 4:30 PM 10/10 1630 AC 10/11 PO 0928 Furosemide 40 MG 7:30 AM, & 4:30 PM 10/09 0730 DC 10/10 IV 0800 Heparin Sodium 5,000 UNIT Q8 10/08 2200 AC 10/11 (Porcine) SC 0603 Insulin Aspart 0 TIDAC 10/08 1715 AC 10/11 SC 0928 Prednisone 10 MG DAILY 10/13 1000 AC PO 10/13 1001 Prednisone 20 MG DAILY 10/12 1000 AC PO 10/12 1001 Prednisone 30 MG DAILY 10/11 1000 DC 10/11 PO 10/11 1001 0928 Prednisone 40 MG DAILY 10/10 1500 DC 10/10 PO 10/10 1501 1500 Prednisone 40 MG DAILY 10/10 1406 DC PO 10/14 1405 Results Last 48 Hrs of Labs/Mics: Laboratory Tests 10/11/17 0638: Anion Gap 13, Estimated GFR 48 L, BUN/Creatinine Ratio 30.9 H, Pro-B- Natriuretic Pept 37836 H, CBC w Diff NO MAN DIFF REQ, RBC 3.63 L, MCV 89.1, MCH 29.7, MCHC 33.3, RDW 15.8 H, MPV 10.0, Gran % 87.7 H, Lymphocytes % 8.8 L , Monocytes % 3.3, Eosinophils % 0, Basophils % 0.2, Absolute Granulocytes 7.1 H, Absolute Lymphocytes 0.7 L, Absolute Monocytes 0.3, Absolute Eosinophils 0, Absolute Basophils 0 10/10/17 0600: Anion Gap 13, Estimated GFR 48 L, BUN/Creatinine Ratio 31.8 H 10/09/17 1645: Lactic Acid 2.3 H Assessment/Plan Assessment/Plan Assessment: 1. Worsening dyspnea with evidence of CHF on examination and CXR; elevated proBNP; acute hypercapneic respiratory failure - The patient's physical examination and CXR are consistent with CHF; echo cardiac exam confirms the presence of severe aortic stenosis, calcification of the mitral leaflets and mitral annulus with evidence of ruptured chords and moderate (or more severe) MR. Cardiomyopathy with ejection fraction of 35-40% and anteroseptal and anteroapical wall motion of normalities and severe pulmonary hypertension. 2. LE edema possible related to #1 3. Murmur -Echo cardiac gram confirms the presence of severe as with moderate ( or worse) sees mitral regurgitation and cardiomyopathy with pulmonary hypertension and tricuspid insufficiency noted. 4. Abnormal ECG -Echo cardiac exam confirms the presence of an anteroseptal and anteroapical wall motion of normalities 5. ELevated lactic acid level 5. Normalcytic anemia 6. History of HTN 7. History of DM2 8. History of asthma Recommendations: -The patient back on patient monitor for monitoring of heart rate and rhythm -Ambulate the patient with monitoring of heart rate, blood pressure, and oxygen saturations -PA and lateral chest x-ray today -I discussed the situation in detail and at length with the patient. I also discussed this on the phone with her brother. For now, I would try to optimize the patient's status today. -Possible discharge tomorrow if the patient remains stable. Eventually, she will need a MARKIE to better assess mitral valve anatomy and function. Following that she will likely need a cardiac catheterization to assess her coronary anatomy, etc. In view of her CHF, aortic and mitral valve disease, and cardiomyopathy, I suspect that she will need some intervention in the not-too- distant future. Whether this is surgical or percutaneous remains to be decided upon. -If the patient is stable tomorrow and medications were adjusted appropriately she can probably discharge tomorrow follow up with me as an outpatient. Continue telemetry? Yes
--- NOTE | 2017-10-11 13:25 | PN- Att Addend ---
Attending Addendum Attending Brief Note Patient seen and examined. Plan of care discussed with the medical team and the patient. Available lab work and radiology test reports were reviewed. Patient is much better and she denies any difficulty breathing. She has been ambulating in hallway without oxygen and has done very well. She feels back to her baseline and wishes to go home today. Denies any chest pain fever chills. Denies any sputum production. No nausea vomiting reported. Exam: General: Patient awake alert oriented without any distress CVS: S1 plus S2 without any murmur or gallops Chest: Few scattered crepitation without any wheeze. There is no respiratory distress. 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 Mejia; patient may need MARKIE study in near future to delineate the mitral valve disease; as per cardiology patient to is to be placed on telemetry again * Plan for discharge in a.m. Current Medications Sig/Haseeb Start time Last Medication Dose Route Stop Time Status Admin Albuterol Sulfate 3 ML TID 10/09 1000 AC 10/11 INH 0825 Albuterol Sulfate 2 PUF Q4-6 PRN PRN 10/08 171 AC INH Amlodipine Besylate 5 MG 10/09 1700 AC 10/10 PO 174 Atorvastatin Calcium 20 MG 10/09 1700 AC 10/10 PO 1747 Budesonide/ 2 PUF BID 10/09 1000 AC 10/11 Formoterol Fumarate INH 0928 Furosemide 40 MG 7:30 AM, & 4:30 PM 10/10 1630 AC 10/11 PO 0928 Furosemide 40 MG 7:30 AM, & 4:30 PM 10/09 0730 DC 10/10 IV 0800 Heparin Sodium 5,000 UNIT Q8 10/08 2200 AC 10/11 (Porcine) SC 1244 Insulin Aspart 0 TIDAC 10/08 1715 AC 10/11 SC 1244 Prednisone 10 MG DAILY 10/13 1000 AC PO 10/13 1001 Prednisone 20 MG DAILY 10/12 1000 AC PO 10/12 1001 Prednisone 30 MG DAILY 10/11 1000 DC 10/11 PO 10/11 1001 0928 Prednisone 40 MG DAILY 10/10 1500 DC 10/10 PO 10/10 1501 1500 Prednisone 40 MG DAILY 10/10 1406 DC PO 10/14 1405 Laboratory Tests 10/11/17 0638: Anion Gap 13, Estimated GFR 48 L, BUN/Creatinine Ratio 30.9 H, Pro-B- Natriuretic Pept 66023 H, CBC w Diff NO MAN DIFF REQ, RBC 3.63 L, MCV 89.1, MCH 29.7, MCHC 33.3, RDW 15.8 H, MPV 10.0, Gran % 87.7 H, Lymphocytes % 8.8 L , Monocytes % 3.3, Eosinophils % 0, Basophils % 0.2, Absolute Granulocytes 7.1 H, Absolute Lymphocytes 0.7 L, Absolute Monocytes 0.3, Absolute Eosinophils 0, Absolute Basophils 0 10/10/17 0600: Anion Gap 13, Estimated GFR 48 L, BUN/Creatinine Ratio 31.8 H 10/09/17 1645: Lactic Acid 2.3 H 10/09/17 0610: Anion Gap 14, Estimated GFR 48 L, BUN/Creatinine Ratio 24.5, CBC w Diff NO MAN DIFF REQ, RBC 3.53 L, MCV 89.1, MCH 29.7, MCHC 33.3, RDW 16.0 H, MPV 10.0, Gran % 90.0 H, Lymphocytes % 9.1 L, Monocytes % 0.7 L, Eosinophils % 0, Basophils % 0.2, Absolute Granulocytes 5.4, Absolute Lymphocytes 0.5 L, Absolute Monocytes 0 L, Absolute Eosinophils 0, Absolute Basophils 0 10/09/17 0015: Troponin I 0.05 10/08/17 2245: Lactic Acid 2.6 H 10/08/17 1852: Troponin I 0.04 10/08/17 185: Lactic Acid 4.3 H 10/08/17 1720: pH 7.38, pCO2 26 L, pO2 109 H, HCO3 16 L, ABG O2 Sat (Measured) 97.0, P-50 ( Temp Corrected) Y, Carboxyhemoglobin 1 L, O2 Concentration % 40%, Temperature 97.9, Respiration Rate 24, O2 Delivery Method BIPAP, Vent Mode ST, Expiratory Pressure 4, Inspiratory Pressure 18, Phlebotomy Draw Site RIGHT RADIAL 10/08/17 1633: Lactic Acid 3.3 H, D-Dimer High Sensitivty 355 H 10/08/17 1545: pH 7.15 *L, pCO2 51 H, pO2 80, HCO3 18 L, ABG O2 Sat (Measured) 89.0 L, Carboxyhemoglobin 0.7 L, O2 Concentration % 8 LPM, O2 Delivery Method NEB, Phlebotomy Draw Site RIGHT RADIAL 10/08/17 1334: Anion Gap 16, Estimated GFR > 60, BUN/Creatinine Ratio 23.3, Glucose 174 H, Serum Osmolality 296 H, Lactic Acid 3.0 H, Calcium 9.7, Phosphorus 4.2, Total Bilirubin 1.7 H, AST 33, ALT 31, Alkaline Phosphatase 52, Troponin I 0.03, Pro- B-Natriuretic Pept 72662 H, Total Protein 7.0, Albumin 4.0, Globulin 3.0, Albumin/Globulin Ratio 1.3, TSH &T3 &Free T4 Intrp 0.891, CBC w Diff NO MAN DIFF REQ, RBC 3.71 L, MCV 88.1, MCH 29.4, MCHC 33.4, RDW 15.4 H, MPV 9.1, Gran % 80.3 H, Lymphocytes % 14.6 L, Monocytes % 4.2, Eosinophils % 0.6, Basophils % 0.3, Absolute Granulocytes 6.6 H, Absolute Lymphocytes 1.2, Absolute Monocytes 0.3, Absolute Eosinophils 0, Absolute Basophils 0 Microbiology 10/08 1639 URINE ROUT: Urine Culture - CAN Cancelled: SPECIMEN NOT RECEIVED IN LABORATORY Vital Signs Date Time Temp Pulse Resp B/P B/P Pulse O2 O2 Flow FiO2 Mean Ox Delivery Rate 10/11 1115 98.0 112 95 112/74 Room Air 10/11 0828 97 Room Air Room Air 10/11 0600 98.0 112 18 104/60 93 10/10 2231 97.8 107 18 100/62 92 10/10 1830 95 Room Air 10/10 1747 107 102/62 10/10 1507 97.6 107 20 102/62 92 Room Air Intake & Output 10/11 1600 10/11 0800 10/11 0000 Intake Total 150 100 Output Total 650 250 Balance -500 -150 Intake, Oral 150 100 Output, Urine 650 250 Patient 194 lb Weight
[2017-10-11 15:35] VITALS: BP 96/66
[2017-10-11 21:50] VITALS: BP 106/58
[2017-10-12 06:39] VITALS: BP 106/52
--- NOTE | 2017-10-12 07:46 | PN- Housestaff ---
Subjective Follow-up For: #1 acute hypoxic respiratory failure #2 acute heart failure #3 history of type 2 diabetes #4 history of hypertension #5 asthma exacerbation #6 lactic acidosis #7 aortic stenosis severe with a valve area of 0.9 cm #8 mitral valve insufficiency Tele-Events Since Last Visit: NSR 80-90s Subjective: No overnight event. Patient felt well and would like to be discharged. She acknowledged that she needs to be followed up by Dr. Mejia in outpatient and need possible catherization. No complaint of CP/SOB/Headache/dizziness. Review of Systems Constitutional: Reports: see HPI. Objective Last 24 Hrs of Vital Signs/I&O Vital Signs Date Time Temp Pulse Resp B/P B/P Pulse O2 O2 Flow FiO2 Mean Ox Delivery Rate 10/12 0821 93 Room Air Room Air 10/12 0639 97.8 94 19 106/52 96 Room Air Room Air 10/11 2150 97.6 103 18 106/58 93 Room Air 10/11 1938 98 Room Air Room Air 10/11 1631 98.1 112 18 108/62 10/11 1535 98.1 107 18 96/66 94 Intake & Output 10/12 1600 10/12 0800 10/12 0000 Intake Total 150 150 Output Total 425 300 800 Balance -425 -150 -650 Intake, Oral 150 150 Output, Urine 425 300 800 Patient 83.007 kg Weight Weight Chair scale Measurement Method Physical Exam General Appearance: Alert, Oriented X3, Cooperative, No Acute Distress Cardiovascular: Regular Rate Lungs: Clear to Auscultation, Normal Air Movement Abdomen: Soft, No Tenderness Neurological: Normal Speech, Strength at 5/5 X4 Ext Extremities: No Edema, Normal Pulses Current Medications: Current Medications Sig/Haseeb Start time Last Medication Dose Route Stop Time Status Admin Albuterol Sulfate 3 ML TID 10/09 1000 AC 10/12 INH 0820 Albuterol Sulfate 2 PUF Q4-6 PRN PRN 10/08 1715 AC INH Amlodipine Besylate 5 MG 10/09 1700 AC 10/11 PO 1631 Atorvastatin Calcium 20 MG 10/09 1700 AC 10/11 PO 1631 Budesonide/ 2 PUF BID 10/09 1000 AC 10/12 Formoterol Fumarate INH 0949 Furosemide 40 MG 7:30 AM, & 4:30 PM 10/10 1630 AC 10/12 PO 0804 Heparin Sodium 5,000 UNIT Q8 10/08 2200 AC 10/12 (Porcine) SC 0638 Insulin Aspart 0 TIDAC 10/08 1715 AC 10/12 SC 0804 Prednisone 10 MG DAILY 10/13 1000 AC PO 10/13 1001 Prednisone 20 MG DAILY 10/12 1000 DC 10/12 PO 10/12 1001 0949 Last 24 Hrs of Lab/Mario Results Last 24 Hrs of Labs/Mics: Laboratory Tests 10/12/17 0630: Anion Gap 12, Estimated GFR 48 L, BUN/Creatinine Ratio 24.5, Lactic Acid 1.9 Assessment/Plan Assessment: Ms Kong is an 82-year-old woman with a past history of asthma, type 2 diabetes, hypertension came to the hospital with a chief concern of dyspnea for the last one and half month, and the symptoms that got worse in the last few days to a point that she was dyspnic even at rest on the am of presentation to the ER likely secondary to acute on chronic CHF exacerbation. Problem list: # acute hypoxic respiratory failure, resolved # acute on systolic HFrEF # history of type 2 diabetes # history of hypertension # history of asthma # lactic acidosis # Aortic stenosis #Systolic CHF exascerbation Currently off O2 Echo: 1. Fibrocalcific degeneration is present in the aortic valve with moderate to severe aortic stenosis (PG 41 mmHg; MG 26 mmHg; DU 0.9 cm2). 2. Moderate thickening and calcification of the mitral leaflets is noted extending into the subvalvular chordal structureTs. Moderate anular calcification is also noted. Ruptured chordae are noted. Mitral insufficiency is present which is eccentric and at least moderate in severity with moderate left atrial enlargement. 3. A very small pericardial effusion is noted. 4. A moderate to large sized left pleural effusion is present. 5. The left ventricular chamber size is normal. THere is hypokinesia of the mid to distal septuam and anteroapical segments noted with an ejection fraction of 35-40%. 6. The right heart chambers are upper normal in size with mild tricuspid insufficency, minimal pulmonic insufficiency and pulmonary hypertension with an estimated RV systolic pressure of 58 mmHg. 7. A fibrosed muscular band is noted traversing the LVOT with no evidence of Subvalvulat LVOT obstruction at rest. 8. A MARKIE would be useful in this patient to better assess the severity of mitral insuficiency present. -cont i/o, daily weights -will discharge on Lasix 20mg qd per cardio input as she was borderline low on BP. -cont prednisone taper, will taper rapid as patient's current clinical picture + Echo warrant more CHF exacerbation rather than asthma flare. -cont symbicort, trc nebs as needed. -Repeat CXR AP showed No significant interval change in small bilateral pleural effusions and bibasilar hazy airspace disease. -Restart Telemetry as patient's tachycardia was not completely resolved before discontinuation, and would need further management, eg. Coreg, provided that patient's BP would tolerated. - ambulate w/ O2/BP had been normal -Cardio will f/u with her outpatient for MARKIE and Cath. #lactic acidosis Downtrended to 2.3 -> 1.9 on latest lab -monitor any signs of infection -bipap if needed #hx of diabetes -Accuchecks, and Insulin sliding scale. #mild cr elevation Cr 1.1 (baseline .9) - Hold losartan/HCTZ for now since she has elevated Sr Cr; , and continue amlodipine 5mg qd. #DVT prophylaxis-subcutaneous heparin #CODE STATUS-full code. Problem List: 1. Aortic stenosis 2. Pulmonary hypertension Pain Ratin Pain Location: NA Pain Goal: Remain pain free Pain Plan: see AP Tomorrow's Labs & Rationales: NA
--- NOTE | 2017-10-12 08:43 | PN- Pulmonary ---
Subjective HPI/Critical Care Issues: Patient feels comfortable on room air without shortness of breath. Objective Current Medications: Current Medications Sig/Haseeb Start time Last Medication Dose Route Stop Time Status Admin Albuterol Sulfate 3 ML TID 10/09 1000 AC 10/12 INH 0820 Albuterol Sulfate 2 PUF Q4-6 PRN PRN 10/08 1715 AC INH Amlodipine Besylate 5 MG 1700 10/09 1700 AC 10/11 PO 1631 Atorvastatin Calcium 20 MG 1700 10/09 1700 AC 10/11 PO 1631 Budesonide/ 2 PUF BID 10/09 1000 AC 10/11 Formoterol Fumarate INH 202 Furosemide 40 MG 7:30 AM, & 4:30 PM 10/10 1630 AC 10/12 PO 0804 Heparin Sodium 5,000 UNIT Q8 10/08 2200 AC 10/12 (Porcine) SC 0638 Insulin Aspart 0 TIDAC 10/08 1715 AC 10/12 SC 0804 Prednisone 10 MG DAILY 10/13 1000 AC PO 10/13 1001 Prednisone 20 MG DAILY 10/12 1000 AC PO 10/12 1001 Prednisone 30 MG DAILY 10/11 1000 DC 10/11 PO 10/11 1001 0928 Vital Signs & I&O Last 24 Hrs of Vitals and I&O: Vital Signs Date Time Temp Pulse Resp B/P B/P Pulse O2 O2 Flow FiO2 Mean Ox Delivery Rate 10/12 0821 93 Room Air Room Air 10/12 0639 97.8 94 19 106/52 96 Room Air Room Air 10/11 2150 97.6 103 18 106/58 93 Room Air 10/11 1938 98 Room Air Room Air 10/11 1631 98.1 112 18 108/62 10/11 1535 98.1 107 18 96/66 94 10/11 1115 98.0 112 95 112/74 Room Air Intake & Output 10/12 1600 10/12 0800 10/12 0000 Intake Total 150 150 Output Total 300 800 Balance -150 -650 Intake, Oral 150 150 Output, Urine 300 800 Patient 183 lb Weight Weight Chair scale Measurement Method Room air oxygen saturation 9396% exam for chest shows clear lung cantrell are no wheezes cardiac exam shows regular S1 and S2 with systolic ejection murmur Impression/Plan Impression/Plan Impression/Plan: 82-year-old woman who reportedly has history of asthma admitted with increased shortness of breath secondary to congestive heart failure and valvular heart disease. She is improved with diuresis. Further cardiac evaluation to be completed as an outpatient Recommendations: Continue rapid prednisone taper. She was given instructions as to outpatient use of Advair. Further cardiac evaluation to be performed as outpatient with anticipated cardiac catheterization
--- NOTE | 2017-10-12 12:24 | PN- Cardiology ---
Subjective Subjective: Ms. Prather was seen and examined at the bedside. She is comfortable with no acute complaints. She states she is overall well and feels she is at her baseline, requesting to go home. Her telemetry events revealed normal sinus rhythm with some PACs this morning and sinus tachycardia in the 120s overnight. She is ambulating well, not requiring any O2 supplementation. Objective Vital Signs and I&Os Vital Signs Date Time Temp Pulse Resp B/P B/P Pulse O2 O2 Flow FiO2 Mean Ox Delivery Rate 10/12 0821 93 Room Air Room Air 10/12 0639 97.8 94 19 106/52 96 Room Air Room Air 10/11 2150 97.6 103 18 106/58 93 Room Air 10/11 1938 98 Room Air Room Air 10/11 1631 98.1 112 18 108/62 10/11 1535 98.1 107 18 96/66 94 Intake & Output 10/12 1600 10/12 0800 10/12 0000 10/11 1600 10/11 0800 10/11 0000 Intake Total 150 150 600 150 100 Output Total 425 300 800 500 650 250 Balance -425 -150 -650 100 -500 -150 Intake, Oral 150 150 600 150 100 Number 1 Bowel Movements Output, Urine 425 300 800 500 650 250 Patient 83.007 kg 87.997 kg Weight Weight Chair scale Measurement Method Physical Exam General Appearance: well developed/nourished, no apparent distress, alert, awake , comfortable Neck: supple, JVD (4cm approx) Respiratory: normal breath sounds, chest non-tender, lungs clear Cardiovascular: regular rate and rhythm on auscultation with normal s1, s2. 3/6 systolic crescendo murmur, louder at the base of the heart in the right 2nd intercostal space with radiation to the carotids. No heave appreciated. Abdomen: soft, non-tender Extremities: normal inspection, no edema Current Medications: Current Medications Sig/Haseeb Start time Last Medication Dose Route Stop Time Status Admin Albuterol Sulfate 3 ML TID 10/09 1000 AC 10/12 INH 0820 Albuterol Sulfate 2 PUF Q4-6 PRN PRN 10/08 1715 AC INH Amlodipine Besylate 5 MG 10/09 1700 AC 10/11 PO 1631 Atorvastatin Calcium 20 MG 10/09 1700 AC 10/11 PO 1631 Budesonide/ 2 PUF BID 10/09 1000 AC 10/12 Formoterol Fumarate INH 0949 Furosemide 40 MG 7:30 AM, & 4:30 PM 10/10 1630 AC 10/12 PO 0804 Heparin Sodium 5,000 UNIT Q8 10/08 2200 AC 10/12 (Porcine) SC 0638 Insulin Aspart 0 TIDAC 10/08 1715 AC 10/12 SC 0804 Prednisone 10 MG DAILY 10/13 1000 AC PO 10/13 1001 Prednisone 20 MG DAILY 10/12 1000 DC 10/12 PO 10/12 1001 0949 Results Last 48 Hrs of Labs/Mics: Laboratory Tests 10/12/17 0630: Anion Gap 12, Estimated GFR 48 L, BUN/Creatinine Ratio 24.5, Lactic Acid 1.9 10/11/17 0638: Anion Gap 13, Estimated GFR 48 L, BUN/Creatinine Ratio 30.9 H, Pro-B- Natriuretic Pept 72902 H, CBC w Diff NO MAN DIFF REQ, RBC 3.63 L, MCV 89.1, MCH 29.7, MCHC 33.3, RDW 15.8 H, MPV 10.0, Gran % 87.7 H, Lymphocytes % 8.8 L , Monocytes % 3.3, Eosinophils % 0, Basophils % 0.2, Absolute Granulocytes 7.1 H, Absolute Lymphocytes 0.7 L, Absolute Monocytes 0.3, Absolute Eosinophils 0, Absolute Basophils 0 Assessment/Plan Assessment/Plan Problem List 1. HFrEF (35-40% with hypokinesia of the mid to distal septuam and anteroapical segments). 2. Moderate-Severe Aortic Stenosis 3. Moderate-Severe Mitral Regurg/Insufficiency 4. Pleural effusion 5. Pulmonary hypertension (RV systolic pressure of 58 mmHg). 6. DM 7. HTN 8. Resolved acute hypoxic respiratory failure in hx of Asthma 9. Lactic acidosis Plan Overnight and this morning she is stable without symptomatology or clinical desaturation or arrhythmias although she was sinus tachycardic overnight. She is saturating well on room air, and is able to ambulate without significant dyspnea. Previously she did have significant clinical evidence of left-sided heart failure given her pulmonary edema, elevated BNP and respiratory failure. She has diuresed well on Lasix, currently her I/O is approximately negative 5000 mL. Her chest x-ray yesterday revealed persistent small bilateral pleural effusions, plan to discharge the patient with continued diuresis in the outpatient setting. Consider 20 mg of Lasix daily. Plan to follow-up with us next week in the office. Given her tachycardia, and her HFrEF, she would benefit from a beta shanthi, however given her borderline hypotension, a beta shanthi now may worsen her hypotension. Ideally, we will discontinue her amlodipine and start carvedilol in its place, however this can be done in the outpatient setting when she follows up with us next week. In addition to requiring a MARKIE for her aortic stenosis, she will also benefit from the MARKIE for further evaluation of her mitral insufficiency. Prior to any intervention to repair her mitral valve, she will also require coronary angiography to evaluate her coronary arteries, and possibly percutaneous transluminal coronary angioplasty. This will also be planned in the outpatient setting Okay to discharge today from a cardiology standpoint with strict follow-up within 1 week with us to reevaluate her medications and set her up for a transesophageal echocardiogram and coronary angiography. Continue telemetry? No
--- NOTE | 2017-10-12 12:29 | PN- Att Addend ---
Attending Addendum Attending Brief Note Patient seen and examined. Plan of care discussed with the medical team and the patient. Available lab work and radiology test reports were reviewed. Patient is much better and she denies any difficulty breathing. She has been ambulating in hallway without oxygen and has done very well. She feels back to her baseline and wishes to go home today. Denies any chest pain fever chills. Denies any sputum production. No nausea vomiting reported. Exam: General: Patient awake alert oriented without any distress CVS: S1 plus S2 without any murmur or gallops Chest: Few scattered crepitation without any wheeze. There is no respiratory distress. 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 Mejia; patient may need MARKIE study in near future to delineate the mitral valve disease; this can be done as outpatient. * Plan for possible discharge today. Current Medications Sig/Haseeb Start time Last Medication Dose Route Stop Time Status Admin Albuterol Sulfate 3 ML TID 10/09 1000 AC 10/12 INH 0820 Albuterol Sulfate 2 PUF Q4-6 PRN PRN 10/08 1715 AC INH Amlodipine Besylate 5 MG 0 10/09 1700 AC 10/11 PO 1631 Atorvastatin Calcium 20 MG 1700 10/09 1700 AC 10/11 PO 1631 Budesonide/ 2 PUF BID 10/09 1000 AC 10/12 Formoterol Fumarate INH 0949 Furosemide 40 MG 7:30 AM, & 4:30 PM 10/10 1630 AC 10/12 PO 0804 Heparin Sodium 5,000 UNIT Q8 10/08 2200 AC 10/12 (Porcine) SC 0638 Insulin Aspart 0 TIDAC 10/08 1715 AC 10/12 SC 0804 Prednisone 10 MG DAILY 10/13 1000 AC PO 10/13 1001 Prednisone 20 MG DAILY 10/12 1000 DC 10/12 PO 10/12 1001 0949 Laboratory Tests 10/12/17 0630: Anion Gap 12, Estimated GFR 48 L, BUN/Creatinine Ratio 24.5, Lactic Acid 1.9 10/11/17 0638: Anion Gap 13, Estimated GFR 48 L, BUN/Creatinine Ratio 30.9 H, Pro-B- Natriuretic Pept 88145 H, CBC w Diff NO MAN DIFF REQ, RBC 3.63 L, MCV 89.1, MCH 29.7, MCHC 33.3, RDW 15.8 H, MPV 10.0, Gran % 87.7 H, Lymphocytes % 8.8 L , Monocytes % 3.3, Eosinophils % 0, Basophils % 0.2, Absolute Granulocytes 7.1 H, Absolute Lymphocytes 0.7 L, Absolute Monocytes 0.3, Absolute Eosinophils 0, Absolute Basophils 0 10/10/17 0600: Anion Gap 13, Estimated GFR 48 L, BUN/Creatinine Ratio 31.8 H 10/09/17 1645: Lactic Acid 2.3 H Vital Signs Date Time Temp Pulse Resp B/P B/P Pulse O2 O2 Flow FiO2 Mean Ox Delivery Rate 10/12 0821 93 Room Air Room Air 10/12 0639 97.8 94 19 106/52 96 Room Air Room Air 10/11 2150 97.6 103 18 106/58 93 Room Air 10/11 1938 98 Room Air Room Air 10/11 1631 98.1 112 18 108/62 10/11 1535 98.1 107 18 96/66 94 Intake & Output 10/12 1600 10/12 0800 10/12 0000 Intake Total 150 150 Output Total 425 300 800 Balance -425 -150 -650 Intake, Oral 150 150 Output, Urine 425 300 800 Patient 183 lb Weight Weight Chair scale Measurement Method chest x-ray October 11 No significant interval change in small bilateral pleural effusions and bibasilar hazy airspace disease. Total time spent in preparation for discharge plan, patient education, and CMR preparation was 35 minutes.
[2017-10-12] MEDS ORDERED: LASIX20 M1 PO ×2 (13:18→15:54)
[2017-10-12 14:08] VITALS: BP 110/60
[2017-10-12] MEDS ORDERED: PREDNISONE10 M2 PO (16:58)
[2017-10-13] MEDS ORDERED: PREDNISONE10 M2 PO (08:00)
== END 2017-10-12 16:10 | DRG 291 ==
LOC: ERH 13:20 → 1NO 14:35 → ERHI 14:35 → EDBEDREQ 16:14 → ERHI 16:17 → EDBEDREQTM 17:00 → EDBEDREQ 17:00 → ERHI 17:01 → ENRESERV 18:17 → ENTRNSPT 19:37 → 1NO 20:05 → CMPTRNSPT 20:06 → 1NO 10-11 09:39 → ENPENDDIS 10-12 15:08 → ENTRNSPT 10-12 15:57 → EDTRNSPTSTS 10-12 16:10 → 1NO 10-12 16:10 → EDTRNSPT 10-12 16:10 → CMPTRNSPT 10-12 16:16
PROVIDERS: Internal Medicine Endocrinology, Diabetes & Metabolism; Physician Assistant Medical
DX: I11.0 Hypertensive heart disease with heart failure (principal); J96.01 Acute respiratory failure with hypoxia; E87.2 Acidosis; J96.02 Acute respiratory failure with hypercapnia; I27.20 Pulmonary hypertension, unspecified; I50.23 Acute on chronic systolic (congestive) heart failure; I42.9 Cardiomyopathy, unspecified; E11.9 Type 2 diabetes mellitus without complications; D64.9 Anemia, unspecified; I08.0 Rheumatic disorders of both mitral and aortic valves; J45.909 Unspecified asthma, uncomplicated; Z79.84 Long term (current) use of oral hypoglycemic drugs; Z91.018 Allergy to other foods
CPT/HCPCS: 1NP; 36592; 71045; 71046; 82436; 87086; 93005; 93010; 93306; 99291; J1644; J1940; J2920; J2930; J3490; J7512